=== PATIENT | male | born 1975 | race Two or more races ===

== ENCOUNTER 2020-02-08 08:18 | Outpatient (REF) | payer BC, SELFPAY ==
[2020-02-08 09:47] LABS: Alanine Aminotransferase 17 U/L (0-40); Albumin Level 4.3 g/dL (3.5-5.0); Alkaline Phosphatase 40 U/L (39-117); Anion Gap 10 (12-20); Aspartate Amino Transferase 19 U/L (5-37); Bilirubin Total 1.1 mg/dL (0.0-1.0); Blood Urea Nitrogen 15 mg/dL (9-16); Calcium 9.5 mg/dL (8.4-10.2); Carbon Dioxide 28 mmol/L (22-29); Chloride 104 mmol/L (96-108); Cholesterol 169 mg/dL; Estimated Glomerular Filt Rate > 60; Glucose Fasting 84 mg/dL (60-99); HDL Cholesterol 48 mg/dL; LDL Cholesterol Calculated 91 mg/dl; Potassium 4.3 mmol/l (3.3-5.1); Sodium 138 mmol/L (135-145); Triglycerides 152 mg/dL
== END 2020-02-08 08:19 | disposition home or self-care (01) ==
LOC: HO.LAB 08:18
PROVIDERS: PCP Internal Medicine; Visit Provider Internal Medicine
DX: E78.00 Pure hypercholesterolemia, unspecified (principal)
CPT/HCPCS: 80053; 80061

== ENCOUNTER 2020-08-06 09:16 | Outpatient (REF) | payer BC, SELFPAY ==
[2020-08-06 09:48] LABS: Glucose Urine UA NEG (NEG); Leukocyte Esterase Urine NEG (NEG); Nitrite Urine NEG (NEG); Specific Gravity - Urine >= 1.030 (1.005-1.025); Urine Blood TRACE (NEG); Urine Ketones NEG (NEG); Urine Protein NEG (NEG-TRACE)
[2020-08-06 09:53] LABS: Appearance Urine CLEAR; Color Urine YELLOW
[2020-08-06 10:01] LABS: MANUAL DIFF FLAG NO
[2020-08-06 10:02] LABS: RBC Urine 0-2 /HPF (0); Squamous Epithelial Cell Urine TRACE /LPF; WBC Urine 0 /HPF (0-4)
[2020-08-06 10:04] LABS: Basophils Percent Auto 0.5 % (0-2); Eosinophils Absolute Auto 0.1 X10*3/uL (0.0-0.4); Eosinophils Percent Auto 1.6 % (0-4); Hematocrit 48.5 % (42-52); Imm Gran Abs Auto 0.01 X10*3/uL (0.00-0.03); Imm Gran Pct Auto 0.2 % (0.0-0.4); Lymphocytes Absolute Auto 2.4 X10*3/uL (1.2-4.9); Lymphocytes Percent Auto 38.9 % (20-40); Mean Corpuscular Hemoglobin 28.1 pg (27.0-33.0); Mean Corpuscular Volume 85.1 fL (80-98); Mean Platelet Volume 10.8 fL (9.4-12.4); Monocytes Absolute Auto 0.5 X10*3/uL (0.1-1.2); Monocytes Percent Auto 8.2 % (2-11); Neutrophils Absolute Auto 3.2 X10*3/uL (2.0-8.3); Neutrophils Percent Auto 50.6 % (45-73); Platelet Count 200 X10*3/uL (160-400); Red Cell Distribution Width 13.3 % (11.0-16.0); White Blood Count 6.2 X10*3/uL (4.8-10.8)
[2020-08-06 10:29] LABS: Alanine Aminotransferase 24 U/L (0-40); Albumin Level 4.5 g/dL (3.5-5.0); Alkaline Phosphatase 49 U/L (39-117); Anion Gap 10 (12-20); Aspartate Amino Transferase 21 U/L (5-37); Bilirubin Total 0.7 mg/dL (0.0-1.0); Blood Urea Nitrogen 15 mg/dL (9-16); Calcium 9.7 mg/dL (8.4-10.2); Carbon Dioxide 30 mmol/L (22-29); Chloride 104 mmol/L (96-108); Cholesterol 159 mg/dL; Estimated Glomerular Filt Rate > 60; Glucose Fasting 84 mg/dL (60-99); HDL Cholesterol 48 mg/dL; LDL Cholesterol Calculated 71 mg/dl; Sodium 140 mmol/L (135-145); Total Protein 7.3 g/dL (6.5-8.0); Triglycerides 204 mg/dL
[2020-08-06 10:54] LABS: Prostate Specific Antigen Scr 0.55 ng/mL (<0.05-4.0); TSH reflex Free T4 1.66 uIU/mL (0.32-4.0); Vitamin D 25-OH Total 34.2 ng/mL (>30)
== END 2020-08-06 09:17 | disposition home or self-care (01) ==
LOC: HO.LAB 09:16
PROVIDERS: PCP Internal Medicine; Visit Provider Internal Medicine
DX: Z00.00 Encounter for general adult medical examination without abnormal findings (principal); Z12.5 Encounter for screening for malignant neoplasm of prostate; E78.00 Pure hypercholesterolemia, unspecified; E66.3 Overweight; E55.9 Vitamin D deficiency, unspecified
CPT/HCPCS: 36415; 80053; 80061; 81001; 82306; 84153; 84443; 85025

== ENCOUNTER → 2021-03-28 13:41 | Outpatient (BNVA) | payer BC, SELFPAY | PROVIDERS: PCP Internal Medicine; Referring Provider Internal Medicine; Visit Provider Physician Assistant ==

== ENCOUNTER 2021-07-04 11:32 | Outpatient (REF) | payer BC, SELFPAY ==
[2021-07-04 12:24] LABS: MANUAL DIFF FLAG NO
[2021-07-04 12:37] LABS: Basophils Percent Auto 0.7 % (0-2); Eosinophils Absolute Auto 0.1 X10*3/uL (0.0-0.4); Eosinophils Percent Auto 1.3 % (0-4); Hematocrit 49.1 % (42.0-52.0); Imm Gran Abs Auto 0.01 X10*3/uL (0.00-0.03); Imm Gran Pct Auto 0.2 % (0.0-0.4); Lymphocytes Absolute Auto 1.7 X10*3/uL (1.2-4.9); Lymphocytes Percent Auto 36.6 % (20-40); Mean Corpuscular HGB Conc 32.6 g/dl (31.0-36.0); Mean Corpuscular Volume 85.8 fL (80.0-98.0); Mean Platelet Volume 10.5 fL (9.4-12.4); Monocytes Absolute Auto 0.4 X10*3/uL (0.1-1.2); Monocytes Percent Auto 7.9 % (2-11); Neutrophils Absolute Auto 2.4 x10*3/uL (2.0-8.3); Neutrophils Percent Auto 53.3 % (45-73); Platelet Count 190 X10*3/uL (160-400); Red Blood Count 5.72 X10*6/uL (4.60-5.80); Red Cell Distribution Width 14.3 % (11.0-16.0); White Blood Count 4.6 X10*3/uL (4.8-10.8)
[2021-07-04 12:51] LABS: Prothrombin Time 11.9 SEC (9.9-13.0)
[2021-07-04 12:53] LABS: Partial Thromboplastin Time 31.7 SEC (24.1-38.0)
[2021-07-04 13:07] LABS: Alanine Aminotransferase 34 U/L (0-40); Albumin Level 4.5 g/dL (3.5-5.0); Alkaline Phosphatase 47 U/L (39-117); Anion Gap 10 (12-20); Aspartate Amino Transferase 25 U/L (5-37); Bilirubin Total 1.3 mg/dL (0.0-1.0); Blood Urea Nitrogen 10 mg/dL (9-16); Carbon Dioxide 29 mmol/L (22-29); Chloride 104 mmol/L (96-108); Cholesterol 213 mg/dL; Estimated Glomerular Filt Rate > 60; Glucose Random 91 mg/dL (60-115); HDL Cholesterol 50 mg/dL; LDL Cholesterol Calculated 141 mg/dl; Potassium 4.8 mmol/L (3.3-5.1); Sodium 138 mmol/L (135-145); Total Protein 7.6 g/dL (6.5-8.0); Triglycerides 112 mg/dL
== END 2021-07-04 11:33 | disposition home or self-care (01) ==
LOC: HO.LAB 11:32
PROVIDERS: PCP Internal Medicine; Visit Provider Internal Medicine
DX: Z01.818 Encounter for other preprocedural examination (principal); E78.00 Pure hypercholesterolemia, unspecified
CPT/HCPCS: 36415; 80053; 80061; 85025; 85610; 85730

== ENCOUNTER 2021-07-26 11:19 | Day surgery (SDC) | payer BC, SELFPAY ==
--- NOTE | 2021-07-25 13:18 | P.CONAN_ITS ---
Documented by User: Tammy Peña NP 07/25/21 13:21 HPI - Anesthesia Eval Consult details Narrative: 46yo M for Upper Endoscopy and Colonoscopy [facility] Active Problems Active Problems: All Active Problems (Updated 07/22/21 @ 15:23 by Jennifer Ramsay RN) Annual physical exam (Acute) Colon cancer screening (Acute) Rupture of biceps tendon (Acute) Preoperative examination (Acute) GERD without esophagitis (Acute) Overweight (BMI 25.0-29.9) (Acute) Vitamin D deficiency (Acute) Pure hypercholesterolemia (Acute) Past Medical History Medical History (Updated 07/22/21 @ 15:23 by Jennifer Ramsay RN) GERD without esophagitis Overweight (BMI 25.0-29.9) Pure hypercholesterolemia Vitamin D deficiency Family History Family History Father No problems noted. Mother No problems noted. Surgical History Surgical History (Updated 07/22/21 @ 15:23 by Jennifer Ramsay RN) History of elbow surgery History of esophagogastroduodenoscopy (EGD) History of surgery Hx of colonoscopy Social History Social History Household Members Other:: Housing: House Alcohol intake: current Alcohol intake frequency: does not drink Patient Tobacco Use Status: Never used Tobacco Second Hand Smoke Exposure: No Use of substances other than those prescribed or required for medical reasons: No Are you DNR?: No Advance Directives: No Advance Directives Information Provided: Yes Advance Directives on File: No service: No Current occupational status: employed 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 Cognitive needs: No Hearing needs: No Vision needs: No Meds Allergies Allergy/AdvReac Type Severity Reaction Status Date / Time No Known Allergies Allergy Verified 07/22/21 15:24 Home Medications Medication Instructions Recorded Confirmed Last Taken Type cholecalciferol (vitamin D3) 25 25 mcg PO DAILY 03/06/20 07/22/21 Unknown History mcg (1,000 unit) capsule Exam Exam Date and Time: July 25, 2021 1318 Pertinent Lab Results Pertinent Lab Results: Laboratory Tests 07/04/21 07/04/21 12:22 12:22 WBC 4.6 L Hgb 16.0 Hct 49.1 Plt Count 190 Sodium 138 Potassium 4.8 Chloride 104 Carbon Dioxide 29 BUN 10 Creatinine 0.97 Assessment and Plan Assessment Anesthesia Assessment: Chart Reviewed Documented by User: Nasima Prater MD 07/26/21 12:42 [facility] Past Medical History Medical History (Updated 07/22/21 @ 15:23 by Jennifer Ramsay, RN) GERD without esophagitis Overweight (BMI 25.0-29.9) Pure hypercholesterolemia Vitamin D deficiency Family History Family History Father No problems noted. Mother No problems noted. Family history of problems with anesthesia: No Surgical History Surgical History (Updated 07/22/21 @ 15:23 by Jennifer Ramsay RN) History of elbow surgery History of esophagogastroduodenoscopy (EGD) History of surgery Hx of colonoscopy History of Problems with Anesthesia: No Social History Social History Household Members Other:: Housing: House Alcohol intake: current Alcohol intake frequency: does not drink Patient Tobacco Use Status: Never used Tobacco Second Hand Smoke Exposure: No Use of substances other than those prescribed or required for medical reasons: No Are you DNR?: No Advance Directives: No Advance Directives Information Provided: Yes Advance Directives on File: No service: No Current occupational status: employed 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 Cognitive needs: No Hearing needs: No Vision needs: No Meds Allergies Allergy/AdvReac Type Severity Reaction Status Date / Time No Known Allergies Allergy Verified 07/22/21 15:24 Home Medications Medication Instructions Recorded Confirmed Last Taken Type cholecalciferol (vitamin D3) 25 25 mcg PO DAILY 03/06/20 07/22/21 Unknown History mcg (1,000 unit) capsule Exam Airway Mallampati Class: II TM Dist: >3cm Neck ROM: Full Heart: rrr Lungs: cta Assessment and Plan Assessment Anesthesia Assessment: Anesthesia Plan Discussed and Chart Reviewed Final Anesthetic Review Family History of Problems with Anesthesia: No History of Problems with Anesthesia: No NPO: Yes ASA Class: II Final Preanesthetic Review: No Changes in Pt Med Stat, Meds/Allgs Chart Reviewed and Consent Obtained/Reviewed Patient Risk: Intermediate Procedure Risk: Intermediate Anesthetic Plan Anesthetic Plan: MAC: Disposition: Standard PACU
[2021-07-26 11:39] VITALS: BMI 27.9
[2021-07-26 11:44] VITALS: BP 116/68; PULSE 82; RESP 16; TEMP 36.6; O2SAT 98
--- NOTE | 2021-07-26 12:39 | MHC.SHP ---
Pre-Procedural Eval Section A Date of Service: 07/26/21 The patient is an INPATIENT: No The History & Physical has been completed within 30 days and I have reviewed it.: No Section B Chief Complaint: screening,reflux Details of Present Illness: Colon cancer screening, GERD Relevant Family History (Specify if Yes): No Relevant Social History: None Present Medications: see Short Stay Collaborative assessment Medical History: Significant History (GERD without esophagitis Overweight (BMI 25.0-29.9) Pure hypercholesterolemia Vitamin D deficiency) History of Previous Operations: Relevant previous surgery/procedure and date(s) (History of esophagogastroduodenoscopy (EGD) History of surgery Hx of colonoscopy) Allergies: Allergies Allergy/AdvReac Type Severity Reaction Status Date / Time No Known Allergies Allergy Verified 07/22/21 15:24 Review of Systems Sugical H&P ROS: Negative: Constitution, Cardiovascular, Respiratory and Gastrointestinal Exam Surgical H&P Exam: Normal: Heart, Normal: Lungs and Normal: Extremities Plan Diagnosis/Plan: Unchanged I have reviewed the history and physical and performed a pertinent physical examination on my patient. No changes have occurred unless specified.
[2021-07-26] MEDS: Lactated Ringers 1,000 ML 100 ML IVCONT (12:41)
--- NOTE | 2021-07-26 13:04 | PM.OP ---
Brief Operative Note Date of Service: 07/26/21 Pre-op diagnosis: Colon cancer screening, GERD, abdominal bloating Post-op diagnosis: other (GERD, gastritis, gastric polyp, colon polyps, diverticulosis, hemorrhoids) Procedure: FLEXIBLE TRANSORAL UPPER GASTROINTESTINAL ENDOSCOPY WITH BIOPSIES AND COLONOSCOPY TILL CECUM WITH BIOPSIES UPPER ENDOSCOPY Consent: Indications for the procedure and potential complications of bleeding, perforation, reaction to medications and missed diagnosis were discussed with the patient and informed consent was obtained. Instrument: Olympus GIF H 190 mid size upper endoscope Monitoring: Vital signs and clinical assessment, continuous EKG monitoring, Pulse oximetry, Carbon Dioxide monitoring and blood pressure monitoring were done throughout the procedure. Procedure: The patient was placed in the left lateral decubitis position and pre-procedure medications were administered and a bite block was placed. The endoscope was inserted into the mouth and advanced under direct vision to the third part of duodenum. A careful inspection was made as the upper endoscope was withdrawn including a retroflexed examination of the proximal stomach; Findings and interventions are described below. Findings: Larynx: Normal Esophagus: GE junction at 40 cms. No esophagitis or Kurtz's. Stomach: Mild gastric erythema. Biopsies were obtained. A 4-5 mm benign appearing polyp in the fundus (biopsied) and Grade 2 flap valve on retroflexed examination of the cardia. Duodenum: Normal bulb and descending duodenum. Biopsies were obtained from 3rd part of the duodenum to check for celiac sprue. Intervention: Biopsies as noted above COLONOSCOPY PROCEDURE NOTE Consent: Indications for the procedure and potential complications of bleeding, perforation, reaction to medications and missed diagnosis were discussed with the patient and informed consent was obtained. Instrument: Olympus PCF H 190 L variable stiffness pediatric colonoscope Monitoring: Vital signs and clinical assessment, intermittent blood pressure monitoring, continuous EKG monitoring, Pulse oximetry and Carbon Dioxide monitoring were done throughout the procedure. Colon withdrawl time was 14 minutes. Procedure: The patient was placed in the left lateral decubitis position and pre-procedure medications were administered. After a digital rectal examination of the ano-rectum, the video colonoscope was inserted into the rectum and advanced through the colon to the cecum. The colonoscope was slowly withdrawn in a retrograde panoramic fashion and the colon mucosa was carefully examined including a retroflexed view of the rectum. Findings and interventions are described below. Procedure Difficulty: : Without difficulty Findings: Terminal Ileum: Not evaluated Cecum: Partially evaluated due to sub optimal prep in the right colon Ascending Colon: Normal Transverse Colon: Normal Descending Colon: Normal Sigmoid Colon: Moderate diverticulosis Rectum: Two 5-6 mm diminutive appearing polyps removed with a cold biopsy Ano-rectum: Moderate internal hemorrhoids Colon preparation: Fair in the right colon and small area in the sigmoid colon due to undigested food - despite copious irrigation Good in the transverse and left colon (approx 60 to 65% of the colon mucosa was visualized) Impression and Post Procedure Diagnosis: Endoscopy Findings: STOMACH: Gastritis and gastric polyp DUODENUM: Normal - Biopsies were obtained from 3rd part of the duodenum to check for celiac sprue. Colonoscopy Findings: Two small diminutive appearing polyps removed Moderate diverticulosis seen in the sigmoid colon Moderate hemorrhoids on retroflexed exam. Plan: Await pathology results Patient has an appointment on 08/07/21 in the GI Clinic with KEVIN Gunderson. Repeat Colonoscopy interval based on path results - in 3 years due to fair prep in the right colon. Above findings were reviewed with the patient and GERD, Gastric polyps, colon polyps and diverticulosis handouts were given in the discharge area Surgeon: Katie Reese MD Anesthesia: MAC (Dr Vasquez) Was an Estimator Paperboard Boxes used for this Procedure?: Yes Estimator Paperboard Boxes: Shannan Becker Estimated blood loss (mL): 0 Pathology: other (a. Small bowel bx's r/o celiacs b. Gastric antrum bx r/o h. pylori c. Gastric polyp d. Rectal polyp) Condition: stable Disposition: PACU
[2021-07-26 13:32] VITALS: BP 101/64; PULSE 90; RESP 16; TEMP 36.2; O2SAT 93
[2021-07-26 13:47] VITALS: BP 109/69; PULSE 82; RESP 16; O2SAT 95
[2021-07-26 14:02] VITALS: BP 115/72; PULSE 63; RESP 22; TEMP 36.6; O2SAT 96
--- NOTE | 2021-07-28 17:02 | P.OP_ITS ---
Operative Note Operative Note Date of Service: 07/26/21 Narrative: Pre-op diagnosis: Colon cancer screening, GERD, abdominal bloating Post-op diagnosis:?other (GERD, gastritis, gastric polyp, colon polyps, diverticulosis, hemorrhoids) Procedure: FLEXIBLE TRANSORAL UPPER GASTROINTESTINAL ENDOSCOPY WITH BIOPSIES AND COLONOSCOPY TILL CECUM WITH BIOPSIES UPPER ENDOSCOPY Consent:?Indications for the procedure and potential complications of bleeding, perforation, reaction to medications and missed diagnosis were discussed with the patient and informed consent was obtained. Instrument:?Olympus GIF H 190 mid size upper endoscope Monitoring: Vital signs and clinical assessment, continuous EKG monitoring, Pulse oximetry, Carbon Dioxide monitoring and blood pressure monitoring were done throughout the procedure. Procedure:?The patient was placed in the left lateral decubitis position and pre-procedure medications were administered and a bite block was placed. The endoscope was inserted into the mouth and advanced under direct vision to the third part of duodenum. A careful inspection was made as the upper endoscope was withdrawn including a retroflexed examination of the proximal stomach; Findings and interventions are described below. Findings: Larynx:? Normal Esophagus:?GE junction at 40 cms. No esophagitis or Kurtz's. Stomach:?Mild gastric erythema. Biopsies were obtained. A 4-5 mm benign appearing polyp in the fundus (biopsied) and Grade 2 flap valve on retroflexed examination of the cardia. Duodenum:?Normal bulb and descending duodenum.? Biopsies were obtained from 3rd part of the duodenum to check for celiac sprue. Intervention:?Biopsies as noted above COLONOSCOPY PROCEDURE NOTE Consent:?Indications for the procedure and potential complications of bleeding, perforation, reaction to medications and missed diagnosis were discussed with the patient and informed consent was obtained. Instrument:?Olympus PCF H 190 L variable stiffness pediatric colonoscope Monitoring:?Vital signs and clinical assessment, intermittent blood pressure monitoring, continuous EKG monitoring, Pulse oximetry and Carbon Dioxide monitoring were done throughout the procedure. Colon withdrawl time was 14 minutes. Procedure:?The patient was placed in the left lateral decubitis position and pre-procedure medications were administered. After a digital rectal examination of the ano-rectum, the video colonoscope was inserted into the rectum and advanced through the colon to the cecum. The colonoscope was slowly withdrawn in a retrograde panoramic fashion and the colon mucosa was carefully examined including a retroflexed view of the rectum. Findings and interventions are described below. Procedure Difficulty:?: Without difficulty Findings: Terminal Ileum: Not evaluated Cecum:? Partially evaluated due to sub optimal prep in the right colon Ascending Colon:??Normal Transverse Colon:??Normal Descending Colon:? Normal Sigmoid Colon:??Moderate diverticulosis Rectum:??Two 5-6 mm diminutive appearing polyps removed with a cold biopsy Ano-rectum:??Moderate internal hemorrhoids Colon preparation:? Fair in the right colon and small area in the sigmoid colon due to undigested food - despite copious irrigation Good in the transverse and left colon (approx 60 to 65% of the colon mucosa was visualized) Impression and Post Procedure Diagnosis: Endoscopy Findings: STOMACH:? Gastritis and gastric polyp DUODENUM: Normal - Biopsies were obtained from 3rd part of the duodenum to check for celiac sprue. Colonoscopy Findings: Two small diminutive appearing polyps removed Moderate diverticulosis seen in the sigmoid colon Moderate hemorrhoids on retroflexed exam. Plan: Await pathology results Patient has an appointment on 08/07/21 in the GI Clinic with KEVIN Gunderson. Repeat Colonoscopy interval based on path results - in 3 years due to fair prep in the right colon. Above findings were reviewed with the patient and GERD, Gastric polyps, colon polyps and diverticulosis handouts were given in the discharge area Surgeon: Katie Reese MD Anesthesia:?MAC (Dr Vasquez) Was an Polishing Pad Mounter used for this Procedure?:?Yes Polishing Pad Mounter:?Shannan Becker Estimated blood loss (mL):?0 Pathology:?other (a. Small bowel bx's r/o celiacs? b. Gastric antrum bx r/o h. pylori? c. Gastric polyp? d. Rectal polyp) Condition:?stable Disposition:?PACU
== END 2021-07-26 14:35 | disposition home or self-care (01) ==
PROVIDERS: PCP Internal Medicine; Visit Provider Internal Medicine Gastroenterology
PROC: (CPT 45380; principal; 2021-07-26 12:40)
DX: Z12.11 Encounter for screening for malignant neoplasm of colon (principal); K62.1 Rectal polyp; K57.30 Diverticulosis of large intestine without perforation or abscess without bleeding; K64.8 Other hemorrhoids; K21.9 Gastro-esophageal reflux disease without esophagitis; K29.70 Gastritis, unspecified, without bleeding; K31.7 Polyp of stomach and duodenum; E66.3 Overweight; Z68.27 Body mass index [BMI] 27.0-27.9, adult; E78.00 Pure hypercholesterolemia, unspecified; E55.9 Vitamin D deficiency, unspecified; Z79.899 Other long term (current) drug therapy
CPT/HCPCS: 45380; 43239; 88305; 88342

== ENCOUNTER 2021-12-14 07:28 | Outpatient (REF) | payer BC, SELFPAY ==
[2021-12-14 07:47] LABS: MANUAL DIFF FLAG NO
[2021-12-14 08:08] LABS: Basophils Absolute Auto 0.1 X10*3/uL (0.0-0.2); Eosinophils Absolute Auto 0.1 X10*3/uL (0.0-0.4); Eosinophils Percent Auto 1.9 % (0-4); Hematocrit 47.7 % (42.0-52.0); Hemoglobin 15.5 g/dl (14.0-18.0); Imm Gran Abs Auto 0.02 X10*3/uL (0.00-0.03); Imm Gran Pct Auto 0.3 % (0.0-0.4); Lymphocytes Absolute Auto 2.3 X10*3/uL (1.2-4.9); Lymphocytes Percent Auto 38.5 % (20-40); Mean Corpuscular HGB Conc 32.5 g/dl (31.0-36.0); Mean Corpuscular Hemoglobin 27.9 pg (27.0-33.0); Mean Corpuscular Volume 85.9 fL (80.0-98.0); Mean Platelet Volume 10.6 fL (9.4-12.4); Monocytes Absolute Auto 0.5 X10*3/uL (0.1-1.2); Monocytes Percent Auto 7.8 % (2-11); Neutrophils Percent Auto 50.5 % (45-73); Platelet Count 203 X10*3/uL (160-400); Red Blood Count 5.55 X10*6/uL (4.60-5.80); Red Cell Distribution Width 13.6 % (11.0-16.0); White Blood Count 5.9 X10*3/uL (4.8-10.8)
[2021-12-14 08:38] LABS: Alanine Aminotransferase 21 U/L (0-40); Albumin Level 4.5 g/dL (3.5-5.0); Alkaline Phosphatase 54 U/L (39-117); Anion Gap 13 (12-20); Aspartate Amino Transferase 26 U/L (5-37); Bilirubin Total 0.9 mg/dL (0.0-1.0); Blood Urea Nitrogen 10 mg/dL (9-16); Calcium 9.8 mg/dL (8.4-10.2); Carbon Dioxide 28 mmol/L (22-29); Chloride 103 mmol/L (96-108); Cholesterol 164 mg/dL; Estimated Glomerular Filt Rate > 60; Glucose Fasting 91 mg/dL (60-99); HDL Cholesterol 43 mg/dL; LDL Cholesterol Calculated 86 mg/dl; Sodium 140 mmol/L (135-145); Total Protein 7.5 g/dL (6.5-8.0); Triglycerides 177 mg/dL
[2021-12-14 09:02] LABS: Prostate Specific Antigen 0.69 ng/mL (<0.05-4.0); TSH reflex Free T4 1.76 uIU/mL (0.32-4.0); Vitamin D 25-OH Total 38.1 ng/mL (>30)
[2021-12-14 09:03] LABS: Appearance Urine Clear; Color Urine Dark Yellow; Glucose Urine UA Negative (Negative); Leukocyte Esterase Urine Negative (Negative); Nitrite Urine Negative (Negative); PH 5.5 (5.0-9.0); Specific Gravity - Urine 1.025 (1.005-1.025); Urine Blood Negative (Negative); Urine Ketones Trace mg/dL (Negative); Urine Protein Negative (Neg-Trace)
== END 2021-12-14 07:29 | disposition home or self-care (01) ==
LOC: HO.LAB 07:28
PROVIDERS: PCP Internal Medicine; Visit Provider Internal Medicine
DX: Z00.00 Encounter for general adult medical examination without abnormal findings (principal); I10 Essential (primary) hypertension; N40.0 Benign prostatic hyperplasia without lower urinary tract symptoms; E78.00 Pure hypercholesterolemia, unspecified; E55.9 Vitamin D deficiency, unspecified; Z12.5 Encounter for screening for malignant neoplasm of prostate
CPT/HCPCS: 36415; 80053; 80061; 81003; 82306; 84153; 84443; 85025

== ENCOUNTER 2022-07-11 08:23 | Outpatient (REF) | payer BC, SELFPAY ==
[2022-07-11 08:32] LABS: MANUAL DIFF FLAG NO
[2022-07-11 08:46] LABS: Basophils Percent Auto 0.6 % (0-2); Eosinophils Absolute Auto 0.1 X10*3/uL (0.0-0.4); Eosinophils Percent Auto 2.1 % (0-4); Hematocrit 47.6 % (42.0-52.0); Hemoglobin 15.7 g/dl (14.0-18.0); Imm Gran Abs Auto 0.01 X10*3/uL (0.00-0.03); Imm Gran Pct Auto 0.2 % (0.0-0.4); Lymphocytes Absolute Auto 2.2 X10*3/uL (1.2-4.9); Lymphocytes Percent Auto 41.7 % (20-40); Mean Platelet Volume 10.4 fL (9.4-12.4); Monocytes Absolute Auto 0.4 X10*3/uL (0.1-1.2); Monocytes Percent Auto 8.1 % (2-11); Neutrophils Absolute Auto 2.5 x10*3/uL (2.0-8.3); Neutrophils Percent Auto 47.3 % (45-73); Platelet Count 196 X10*3/uL (160-400); Red Cell Distribution Width 13.5 % (11.0-16.0); White Blood Count 5.2 X10*3/uL (4.8-10.8)
[2022-07-11 08:55] LABS: Appearance Urine Clear; Color Urine Yellow; Glucose Urine UA Negative (Negative); Leukocyte Esterase Urine Negative (Negative); Nitrite Urine Negative (Negative); PH 5.5 (5.0-9.0); Urine Blood Negative (Negative); Urine Ketones Negative (Negative); Urine Protein Negative (Neg-Trace)
[2022-07-11 09:15] LABS: Alanine Aminotransferase 26 U/L (0-40); Albumin Level 4.3 g/dL (3.5-5.0); Alkaline Phosphatase 46 U/L (39-117); Anion Gap 12 (12-20); Aspartate Amino Transferase 24 U/L (5-37); Bilirubin Total 1.4 mg/dL (0.0-1.0); Blood Urea Nitrogen 15 mg/dL (9-16); Calcium 9.6 mg/dL (8.4-10.2); Carbon Dioxide 26 mmol/L (22-29); Chloride 107 mmol/L (96-108); Cholesterol 178 mg/dL; Estimated Glomerular Filt Rate > 60; Glucose Fasting 84 mg/dL (60-99); HDL Cholesterol 43 mg/dL; LDL Cholesterol Calculated 110 mg/dl; Potassium 4.1 mmol/L (3.3-5.1); Sodium 141 mmol/L (135-145); Triglycerides 125 mg/dL
[2022-07-11 09:32] LABS: Vitamin D 25-OH Total 40.7 ng/mL (>30)
== END 2022-07-11 08:24 | disposition home or self-care (01) ==
LOC: HO.LAB 08:23
PROVIDERS: PCP Internal Medicine; Visit Provider Internal Medicine
DX: R30.0 Dysuria (principal); E55.9 Vitamin D deficiency, unspecified; I10 Essential (primary) hypertension; E78.00 Pure hypercholesterolemia, unspecified
CPT/HCPCS: 36415; 80053; 80061; 81003; 82306; 85025

== ENCOUNTER 2022-11-15 08:42 | Outpatient (REF) | payer BC, SELFPAY ==
[2022-11-15 09:13] LABS: MANUAL DIFF FLAG NO
[2022-11-15 09:44] LABS: Basophils Absolute Auto 0.1 X10*3/uL (0.0-0.2); Basophils Percent Auto 1.1 % (0-2); Eosinophils Absolute Auto 0.1 X10*3/uL (0.0-0.4); Eosinophils Percent Auto 1.4 % (0-4); Hematocrit 47.3 % (42.0-52.0); Hemoglobin 15.5 g/dl (14.0-18.0); Imm Gran Abs Auto 0.02 X10*3/uL (0.00-0.03); Imm Gran Pct Auto 0.4 % (0.0-0.4); Lymphocytes Absolute Auto 1.9 X10*3/uL (1.2-4.9); Lymphocytes Percent Auto 33.6 % (20-40); Mean Corpuscular HGB Conc 32.8 g/dl (31.0-36.0); Mean Corpuscular Hemoglobin 28.5 pg (27.0-33.0); Mean Corpuscular Volume 87.1 fL (80.0-98.0); Mean Platelet Volume 10.5 fL (9.4-12.4); Monocytes Absolute Auto 0.5 X10*3/uL (0.1-1.2); Monocytes Percent Auto 8.3 % (2-11); Neutrophils Absolute Auto 3.1 x10*3/uL (2.0-8.3); Neutrophils Percent Auto 55.2 % (45-73); Platelet Count 197 X10*3/uL (160-400); Red Blood Count 5.43 X10*6/uL (4.60-5.80); Red Cell Distribution Width 13.7 % (11.0-16.0); White Blood Count 5.5 X10*3/uL (4.8-10.8)
[2022-11-15 10:06] LABS: Appearance Urine Clear; Color Urine Yellow; Glucose Urine UA Negative (Negative); Leukocyte Esterase Urine Negative (Negative); Nitrite Urine Negative (Negative); PH 5.5 (5.0-9.0); Urine Blood Negative (Negative); Urine Ketones Negative (Negative); Urine Protein Negative (Neg-Trace)
[2022-11-15 10:34] LABS: Alanine Aminotransferase 25 U/L (0-40); Albumin Level 4.4 g/dL (3.5-5.0); Alkaline Phosphatase 49 U/L (39-117); Aspartate Amino Transferase 25 U/L (5-37); Blood Urea Nitrogen 12 mg/dL (9-16); Calcium 9.7 mg/dL (8.4-10.2); Chloride 106 mmol/L (96-108); Cholesterol 171 mg/dL (<200); Estimated Glomerular Filt Rate > 60; Glucose Fasting 92 mg/dL (60-99); HDL Cholesterol 47 mg/dL (>40); LDL Cholesterol Calculated 102 mg/dL (<100); Potassium 4.1 mmol/L (3.3-5.1); Sodium 140 mmol/L (135-145); Total Protein 7.5 g/dL (6.5-8.0); Triglycerides 114 mg/dL (<150)
[2022-11-15 10:41] LABS: Anion Gap 13 (12-20)
[2022-11-15 10:47] LABS: TSH reflex Free T4 0.83 uIU/mL (0.32-4.0)
[2022-11-15 10:55] LABS: Carbon Dioxide 26 mmol/L (22-29)
== END 2022-11-15 08:43 | disposition home or self-care (01) ==
LOC: HO.LAB 08:42
PROVIDERS: PCP Internal Medicine; Visit Provider Internal Medicine
DX: R30.0 Dysuria (principal); I10 Essential (primary) hypertension; E78.00 Pure hypercholesterolemia, unspecified
CPT/HCPCS: 36415; 80053; 80061; 81003; 84443; 85025

== ENCOUNTER 2022-11-21 16:48 | Outpatient (AMB) | payer BC, SELFPAY ==
--- NOTE | 2022-11-21 16:50 | MHC.PC.OV ---
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 Required: No Accompanied by: Self / Same As Patient Allergies No Known Allergies Allergy (Verified 11/21/22 17:02) Medication List - Last Reconciled 11/21/22 by Patrick Brown MD atorvastatin 10 mg PO BEDTIME 90 days cholecalciferol (vitamin D3) 25 mcg PO DAILY omeprazole magnesium 20 mg PO DAILY 90 days Tobacco use date assessed: 11/21/22 Dental Screening Dental Screen Date: 11/21/22 Did you have a dental visit in the last 12 months?: Yes Did you have a dental problem in the last 6 months where you did not have access to dental care?: No Was dental information given to patient?: Patient has dentist HPI hyperlipidemia, GERD HPI Details Patient comes in today for his follow up visit States that he feels okay He denies any headaches or dizziness Denies any chest pains, no SOB No nausea/vomiting, no abdominal pain No change in bowel habits noted Had his follow uo labs done last week - to discuss his results [facility] Medical History GERD without esophagitis Overweight (BMI 25.0-29.9) Vitamin D deficiency Pure hypercholesterolemia Surgical History History of elbow surgery History of esophagogastroduodenoscopy (EGD) Hx of colonoscopy History of surgery Family History Father No problems noted. Mother No problems noted. 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 1. Little interest or pleasure in doing things: not at all 2. Feeling down, depressed, or hopeless: not at all 3. Trouble falling or staying asleep, or sleeping too much: not at all 4. Feeling tired or having little energy: not at all 5. Poor appetite or overeating: not at all 6. Feeling bad about yourself - or that you are a failure or have let yourself or your family down: not at all 7. Trouble concentrating on things, such as reading the newspaper or watching television: not at all 8. Moving or speaking so slowly that other people could have noticed. Or the opposite - being so fidgety or restless that you have been moving around a lot more than usual: not at all 9. Thoughts that you would be better off or of hurting yourself in some way: not at all Total score: 0 Depression Screening Interpretation: Negative Depression Screening Done: Yes 30717 - PHQ-9 Billing: Yes Source: Developed by Drs. Pankaj Suarez, Geeta Head, Benedicto Borja and colleagues, with an educational kaz from [employer]. Thrive Questionnaire Date Thrive assessed: 11/21/22 I am a: Patient What is your living situation today?: I have a steady place to live Within the past 12 months, did the food you bought not last and you didn't have the money to get more?: Never true Within the past 12 months, did you worry whether your food would run out before you got money to buy more?: Never true Do you have trouble paying for medicines?: No Do you have trouble getting transportation to medical appointments?: No Do you have trouble paying your heating and electricity bill?: No Do you have trouble taking care of your child, family member or friend?: No Do you have trouble with day-to-day activities such as bathing, preparing meals, shopping, managing finances, etc.?: No Are you currently unemployed and looking for a job?: No Are you interested in more education?: No Please select the resources that you would like help with: None Currently or been in a relationship where the following occur: no concerns reported AUDIT C Alcohol Use Questionnaire (AUDIT-C) 1. How often do you have a drink containing alcohol?: 2-3 times a week 2. How many drinks containing alcohol do you have on a typical day when you are drinking?: 1 or 2 3. How often do you have six or more drinks on one occasion?: Never Total Score: 3 Score Reviewed/Action Taken: Yes OSWALDO-7 AMB Questionnaire OSWALDO-7 Date OSWALDO - 7 assessed: 11/21/22 Feeling nervous, anxious, or on edge: 0 = Not at all Not being able to stop or control worryin = Not at all Worrying too much about different things: 0 = Not at all Trouble relaxin = Not at all Being so restless that it is hard to sit still: 0 = Not at all Becoming easily annoyed or irritable: 0 = Not at all Feeling afraid as if something awful might happen: 0 = Not at all Total OSWALDO-7 score (0-4 normal; 5-9 mild; 10-14 moderate; 15-21 severe): 0 Source: Developed by Drs. Pankaj Suarez, Geeta Head, Benedicto Borja and colleagues, with an educational kaz from [employer]. Review of Systems Const Denies chills, Denies fatigue, Denies fever(s) and Denies headache(s) ENT Denies dysphagia, Denies dizziness, Denies otalgia, Denies headache(s), Denies neck pain, Denies odynophagia and Denies sore throat Card Denies chest pain, Denies palpitations and Denies dyspnea Resp Denies cough and Denies dyspnea GI Denies abdominal pain, Denies constipation, Denies dysphagia, Denies diarrhea, Denies nausea, Denies odynophagia and Denies vomiting Denies dysuria, Denies nocturia and Denies urinary frequency Musc Denies neck pain Neuro Denies dizziness and Denies headache(s) Endo Denies fatigue and Denies palpitations Physical exam (Primary Care) Vital Signs: Last Vital Signs Pulse 64 11/21/22 16:51 BP 104/70 11/21/22 16:51 Pulse Ox 95 11/21/22 16:51 Oxygen Delivery Method Room Air 11/21/22 16:51 BMI result Body Mass Index 29.6 Tobacco/Smoking Status: Tobacco use Status Tobacco use date assessed 11/21/22 11/21/22 16:53 Patient Tobacco Use Status Never used Tobacco 11/21/22 16:53 PHQ-9: PHQ-9 Score PHQ-9: Total score 0 11/21/22 17:06 Depression Screening Interpretation: Negative Thrive Assessment: Date of Thrive Assessment Date Thrive assessed 11/21/22 11/21/22 16:53 Currently or been in a relationship where the following occur: no concerns reported Const General: no acute distress and alert HENMT Ears: TM's normal bilaterally and EAC's normal Throat: Yes posterior oropharynx normal and Yes tonsils normal (no TP congestion) Neck Neck: Yes no lymphadenopathy and Yes supple Resp Auscultation: clear to auscultation bilaterally, no rales and no wheezes Cardio Rate: regular rate Rhythm: regular rhythm Heart sounds: no murmurs GI Palpation (GI): Soft to palpation and nontender Auscultation: normal bowel sounds General: Yes no CVA tenderness Back/Spine/Pelvis Back: no CVA tenderness Extrem General: Yes no clubbing, cyanosis or edema Results Reviewed Results Reviewed: Laboratory Tests 11/15/22 11/15/22 11/15/22 09:06 09:11 09:11 WBC 5.5 Hgb 15.5 Hct 47.3 Plt Count 197 Sodium 140 Potassium 4.1 Creatinine 0.92 Estimated GFR > 60 Fasting Glucose 92 Calcium 9.7 AST 25 ALT 25 Triglycerides 114 Cholesterol 171 LDL Cholesterol, Calc 102 H HDL Cholesterol 47 TSH 0.83 Ur Specific Nice 1.020 Urine Protein Negative Urine Glucose (UA) Negative Urine Blood Negative Assessment and Plan Assessment & Plan (1) Pure hypercholesterolemia: Code(s): E78.00 - Pure hypercholesterolemia, unspecified Plan: Results of his labs done last week reviewed and discussed with patient - advised that his lipids have improved slightly from previous Reinforced low cholesterol diet Continue Atorvastatin 10 mg QD for now Will recheck his labs and fasting lipids in 4 months for follow up (2) GERD without esophagitis: Comment: ED-08/06- GERD- EKG no ischemia, U/S no stones- ppi- avoid culprits Get- EGD Code(s): K21.9 - Gastro-esophageal reflux disease without esophagitis Plan: Dietary restrictions reinforced Continue Omeprazole 20 mg QD (3) Vitamin D deficiency: Code(s): E55.9 - Vitamin D deficiency, unspecified Plan: Continue Vitamin D3 1000 units QD (4) Rupture of biceps tendon: Code(s): S46.219A - Strain of muscle, fascia and tendon of other parts of biceps, unspecified arm, initial encounter Qualifiers: Encounter type: sequela Laterality: right Qualified Code(s): S46.211S - Strain of muscle, fascia and tendon of other parts of biceps, right arm, sequela Plan: Resolved - S/P surgical repair of his distal biceps tendon and reconstruction with tendon allograft on the right elbow by Dr. Moe on 07/09/21, with significant improvement of his right arm strength and mobility He has also completed physical therapy and now just does some arm exercises on his own on a regular basis (5) Overweight (BMI 25.0-29.9): Code(s): E66.3 - Overweight Plan: Reinforced diet/exercise as tolerated/lose weight - has been able to lose some weight again since his last visit Plan Follow up in 4 months Orders: Orders Lipid Panel 4 Months E78.00 - Pure hypercholesterolemia, unspecified Complete Blood Count Auto Diff 4 Months I10 - Essential (primary) hypertension Comprehensive [employer]. Panel Fast 4 Months E78.00 - Pure hypercholesterolemia, unspecified Coding Level of Care Code Est Pt Level 3 (57734) Diagnoses Pure hypercholesterolemia E78.00 GERD without esophagitis K21.9 Vitamin D deficiency E55.9 Rupture of right biceps tendon, sequela S46.211S Encounter type: sequela Laterality: right Overweight (BMI 25.0-29.9) E66.3
[2022-11-21 16:51] VITALS: BP 104/70; PULSE 64; O2SAT 95; BMI 29.6
== END 2022-11-21 17:09 | disposition home or self-care (01) ==
PROVIDERS: PCP Internal Medicine; Visit Provider Internal Medicine
DX: E78.00 Pure hypercholesterolemia, unspecified (principal); K21.9 Gastro-esophageal reflux disease without esophagitis; E55.9 Vitamin D deficiency, unspecified; S46.211S Strain of muscle, fascia and tendon of other parts of biceps, right arm, sequela; E66.3 Overweight
CPT/HCPCS: 99213

== ENCOUNTER 2023-06-13 07:39 | Outpatient (REF) | payer BC, SELFPAY ==
[2023-06-13 07:59] LABS: MANUAL DIFF FLAG NO
[2023-06-13 08:31] LABS: Basophils Absolute Auto 0.1 X10*3/uL (0.0-0.2); Basophils Percent Auto 0.9 % (0-2); Eosinophils Absolute Auto 0.1 X10*3/uL (0.0-0.4); Eosinophils Percent Auto 1.7 % (0-4); Hematocrit 48.6 % (42.0-52.0); Hemoglobin 16.4 g/dl (14.0-18.0); Imm Gran Abs Auto 0.02 X10*3/uL (0.00-0.03); Imm Gran Pct Auto 0.3 % (0.0-0.4); Lymphocytes Absolute Auto 1.8 X10*3/uL (1.2-4.9); Lymphocytes Percent Auto 31.8 % (20-40); Mean Corpuscular HGB Conc 33.7 g/dl (31.0-36.0); Mean Corpuscular Hemoglobin 28.2 pg (27.0-33.0); Mean Corpuscular Volume 83.6 fL (80.0-98.0); Monocytes Absolute Auto 0.5 X10*3/uL (0.1-1.2); Monocytes Percent Auto 8.4 % (2-11); Neutrophils Absolute Auto 3.3 x10*3/uL (2.0-8.3); Neutrophils Percent Auto 56.9 % (45-73); Platelet Count 203 X10*3/uL (160-400); Red Blood Count 5.81 X10*6/uL (4.60-5.80); Red Cell Distribution Width 13.4 % (11.0-16.0); White Blood Count 5.7 X10*3/uL (4.8-10.8)
[2023-06-13 09:19] LABS: Alanine Aminotransferase 34 U/L (0-40); Albumin Level 4.4 g/dL (3.5-5.0); Alkaline Phosphatase 49 U/L (39-117); Anion Gap 13 (12-20); Aspartate Amino Transferase 31 U/L (5-37); Bilirubin Total 1.5 mg/dL (0.0-1.0); Blood Urea Nitrogen 10 mg/dL (9-16); Carbon Dioxide 27 mmol/L (22-29); Chloride 104 mmol/L (96-108); Cholesterol 172 mg/dL (<200); Estimated Glomerular Filt Rate > 60; Glucose Fasting 89 mg/dL (60-99); HDL Cholesterol 43 mg/dL (>40); LDL Cholesterol Calculated 104 mg/dL (<100); Potassium 4.2 mmol/L (3.3-5.1); Sodium 140 mmol/L (135-145); Total Protein 7.7 g/dL (6.5-8.0); Triglycerides 127 mg/dL (<150)
== END 2023-06-13 07:40 | disposition home or self-care (01) ==
LOC: HO.LAB 07:39
PROVIDERS: PCP Internal Medicine; Visit Provider Internal Medicine
DX: E78.00 Pure hypercholesterolemia, unspecified (principal); I10 Essential (primary) hypertension
CPT/HCPCS: 36415; 80053; 80061; 85025

== ENCOUNTER 2023-06-23 13:54 | Outpatient (AMB) | payer BC, SELFPAY ==
[2023-06-23 14:05] VITALS: BP 110/66; PULSE 75; O2SAT 97; BMI 30.4
--- NOTE | 2023-06-23 14:05 | MHC.PC.OV ---
Vital Signs 06/23/23 14:05 Height 5 ft 10 in Weight 212 lb BMI 30.4 BP 110/66 Blood Pressure Location Lt brachial Position Sitting Pulse 75 Pulse Source Pulse Oximeter Pulse Oximetry (%) 97 Oxygen Delivery Method Room Air Intake Visit Reasons: hyperlipidemia Leather Stretcher Required: No Allergies No Known Allergies Allergy (Verified 06/23/23 14:27) Medication List - Last Reconciled 06/23/23 by Patrick Brown MD atorvastatin 10 mg PO BEDTIME 90 days cholecalciferol (vitamin D3) 25 mcg PO DAILY omeprazole magnesium 20 mg PO DAILY 90 days Tobacco use date assessed: 06/23/23 Dental Screening Dental Screen Date: 06/23/23 Did you have a dental visit in the last 12 months?: Yes Did you have a dental problem in the last 6 months where you did not have access to dental care?: No Was dental information given to patient?: Patient has dentist HPI hyperlipidemia HPI Details Patient comes in today for his follow up visit States that he feels okay Has gained some weight lately as he just got back from vacation a couple of weeks ago He denies any headaches or dizziness Denies any chest pains, no SOB No nausea/vomiting, no abdominal pain No change in bowel habits noted Had his follow up labs done a couple of weekends ago - to discuss his results [facility] Medical History GERD without esophagitis Overweight (BMI 25.0-29.9) Vitamin D deficiency Pure hypercholesterolemia Surgical History History of elbow surgery History of esophagogastroduodenoscopy (EGD) Hx of colonoscopy History of surgery Family History Father No problems noted. Mother No problems noted. 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 1. Little interest or pleasure in doing things: not at all 2. Feeling down, depressed, or hopeless: not at all 3. Trouble falling or staying asleep, or sleeping too much: not at all 4. Feeling tired or having little energy: not at all 5. Poor appetite or overeating: not at all 6. Feeling bad about yourself - or that you are a failure or have let yourself or your family down: not at all 7. Trouble concentrating on things, such as reading the newspaper or watching television: not at all 8. Moving or speaking so slowly that other people could have noticed. Or the opposite - being so fidgety or restless that you have been moving around a lot more than usual: not at all 9. Thoughts that you would be better off or of hurting yourself in some way: not at all Total score: 0 Depression Screening Interpretation: Negative Depression Screening Done: Yes 18089 - PHQ-9 Billing: Yes Source: Developed by Drs. Pankaj Suarez, Geeta Head, Benedicto Borja and colleagues, with an educational kaz from [employer] Thrive Questionnaire Date Thrive assessed: 06/23/23 I am a: Patient What is your living situation today?: I have a steady place to live Within the past 12 months, did the food you bought not last and you didn't have the money to get more?: Never true Within the past 12 months, did you worry whether your food would run out before you got money to buy more?: Never true Do you have trouble paying for medicines?: No Do you have trouble getting transportation to medical appointments?: No Do you have trouble paying your heating and electricity bill?: No Do you have trouble taking care of your child, family member or friend?: No Do you have trouble with day-to-day activities such as bathing, preparing meals, shopping, managing finances, etc.?: No Are you currently unemployed and looking for a job?: No Are you interested in more education?: No Please select the resources that you would like help with: None Currently or been in a relationship where the following occur: no concerns reported THRIVE Score: 0 AUDIT C Alcohol Use Questionnaire (AUDIT-C) 1. How often do you have a drink containing alcohol?: 2-3 times a week 2. How many drinks containing alcohol do you have on a typical day when you are drinking?: 1 or 2 3. How often do you have six or more drinks on one occasion?: Never Total Score: 3 Score Reviewed/Action Taken: Yes OSWALDO-7 AMB Questionnaire OSWALDO-7 Date OSWALDO - 7 assessed: 06/23/23 Source: Developed by Drs. Pankaj Suarez, Geeta Head, Benedicto Borja and colleagues, with an educational kaz from [employer] Review of Systems Const Denies chills, Denies fatigue, Denies fever(s) and Denies headache(s) ENT Denies dysphagia, Denies dizziness, Denies otalgia, Denies headache(s), Denies neck pain, Denies odynophagia and Denies sore throat Card Denies chest pain, Denies palpitations and Denies dyspnea Resp Denies cough and Denies dyspnea GI Denies abdominal pain, Denies constipation, Denies dysphagia, Denies diarrhea, Denies nausea, Denies odynophagia and Denies vomiting Denies dysuria, Denies nocturia and Denies urinary frequency Musc Denies back pain and Denies neck pain Skin/Breast Denies rash Neuro Denies dizziness and Denies headache(s) Endo Denies fatigue and Denies palpitations Physical exam (Primary Care) Vital Signs: Last Vital Signs Pulse 75 06/23/23 14:05 BP 110/66 06/23/23 14:05 Pulse Ox 97 06/23/23 14:05 Oxygen Delivery Method Room Air 06/23/23 14:05 BMI result Body Mass Index 30.4 Tobacco/Smoking Status: Tobacco use Status Tobacco use date assessed 06/23/23 06/23/23 14:06 Patient Tobacco Use Status Never used Tobacco 06/23/23 14:06 PHQ-9: PHQ-9 Score PHQ-9: Total score 0 06/23/23 14:18 Depression Screening Interpretation: Negative Thrive Assessment: Date of Thrive Assessment Date Thrive assessed 06/23/23 06/23/23 14:06 Currently or been in a relationship where the following occur: no concerns reported Const General: no acute distress and alert HENMT Ears: TM's normal bilaterally and EAC's normal Throat: Yes posterior oropharynx normal and Yes tonsils normal (no TP congestion) Neck Neck: Yes no lymphadenopathy and Yes supple Resp Auscultation: clear to auscultation bilaterally, no rales and no wheezes Cardio Rate: regular rate Rhythm: regular rhythm Heart sounds: no murmurs GI Palpation (GI): Soft to palpation and nontender Auscultation: normal bowel sounds General: Yes no CVA tenderness Back/Spine/Pelvis Back: no CVA tenderness Skin Rashes: no rashes Extrem General: Yes no clubbing, cyanosis or edema Results Reviewed Results Reviewed: Laboratory Tests 06/13/23 07:57 WBC 5.7 Hgb 16.4 Hct 48.6 Plt Count 203 Sodium 140 Potassium 4.2 Creatinine 1.02 Estimated GFR > 60 Fasting Glucose 89 Calcium 10.0 Total Bilirubin 1.5 H AST 31 ALT 34 Triglycerides 127 Cholesterol 172 LDL Cholesterol, Calc 104 H HDL Cholesterol 43 Assessment and Plan Assessment & Plan (1) Pure hypercholesterolemia: Code(s): E78.00 - Pure hypercholesterolemia, unspecified Plan: Results of his labs done a couple of weekends ago reviewed and discussed with patient Reinforced low cholesterol diet Continue Atorvastatin 10 mg QD Will recheck his labs and fasting lipids in 4 months for follow up (2) GERD without esophagitis: Comment: ED-08/06- GERD- EKG no ischemia, U/S no stones- ppi- avoid culprits Get- EGD Code(s): K21.9 - Gastro-esophageal reflux disease without esophagitis Plan: Dietary restrictions reinforced Continue Omeprazole 20 mg QD (3) Vitamin D deficiency: Code(s): E55.9 - Vitamin D deficiency, unspecified Plan: Continue Vitamin D3 1000 units QD (4) Obesity (BMI 30-39.9): Code(s): E66.9 - Obesity, unspecified Plan: Reinforced diet/exercise as tolerated/lose weight - he has gained some weight lately Plan Follow up in 4 months Orders: Orders Comprehensive [place]. Panel Fast 4 Months E78.00 - Pure hypercholesterolemia, unspecified Vitamin D 25-OH Total 4 Months E55.9 - Vitamin D deficiency, unspecified TSH reflex Free T4 4 Months E78.00 - Pure hypercholesterolemia, unspecified UA CC w/rflx Micro + Cult 4 Months R30.0 - Dysuria Lipid Panel 4 Months E78.00 - Pure hypercholesterolemia, unspecified Coding Level of Care Code Est Pt Level 4 (02165) Diagnoses Pure hypercholesterolemia E78.00 GERD without esophagitis K21.9 Vitamin D deficiency E55.9 Obesity (BMI 30-39.9) E66.9
== END 2023-06-23 14:34 | disposition home or self-care (01) ==
PROVIDERS: PCP Internal Medicine; Visit Provider Internal Medicine
DX: E78.00 Pure hypercholesterolemia, unspecified (principal); K21.9 Gastro-esophageal reflux disease without esophagitis; Z68.30 Body mass index [BMI] 30.0-30.9, adult; E66.9 Obesity, unspecified; E55.9 Vitamin D deficiency, unspecified
CPT/HCPCS: 99214

== ENCOUNTER 2024-01-23 08:31 | Outpatient (REF) | payer BC, SELFPAY ==
[2024-01-23 10:30] LABS: Appearance Urine Clear; Color Urine Yellow; Glucose Urine UA Negative (Negative); Leukocyte Esterase Urine Negative (Negative); Nitrite Urine Negative (Negative); Specific Gravity - Urine 1.025 (1.005-1.025); Urine Blood Negative (Negative); Urine Ketones Negative (Negative); Urine Protein Negative (Neg-Trace)
[2024-01-23 11:09] LABS: Alanine Aminotransferase 29 U/L (0-40); Albumin Level 4.3 g/dL (3.5-5.0); Alkaline Phosphatase 47 U/L (39-117); Anion Gap 13 (12-20); Aspartate Amino Transferase 34 U/L (5-37); Bilirubin Total 1.2 mg/dL (0.0-1.0); Blood Urea Nitrogen 11 mg/dL (9-16); Calcium 9.7 mg/dL (8.4-10.2); Carbon Dioxide 28 mmol/L (22-29); Chloride 103 mmol/L (96-108); Cholesterol 160 mg/dL (<200); Estimated Glomerular Filt Rate > 60; Glucose Fasting 81 mg/dL (60-99); HDL Cholesterol 43 mg/dL (>40); LDL Cholesterol Calculated 91 mg/dL (<100); Sodium 140 mmol/L (135-145); TSH reflex Free T4 1.51 uIU/mL (0.32-4.0); Total Protein 7.3 g/dL (6.5-8.0); Triglycerides 131 mg/dL (<150); Vitamin D 25-OH Total 38.8 ng/mL (>30)
--- OUTSIDE RECORDS SUMMARY | 2024-01-27 11:41 | XMS_ITS ---
Author Name [facility] Organization Unknown History of Medication Use Medication Directions Dispensed Refills Start Date End Date Stat naproxen 500 mg tablet TAKE 1 TABLET (ORAL) 2 TIMES PER DAY FOR 2 WEEKS 08/01/2022 active atorvastatin 10 mg tablet TAKE 1 TABLET BY MOUTH AT BEDTIME 08/01/2022 active Problems Problem Status Onset Date Problem Type Date of Resoluti on Source Traumatic rupture of distal tendon of right biceps brachii active 2022-07-30 ProblemAct ENS_AONECT
== END 2024-01-23 08:32 | disposition home or self-care (01) ==
LOC: HO.LAB 08:31
PROVIDERS: PCP Internal Medicine; Visit Provider Internal Medicine
DX: E78.00 Pure hypercholesterolemia, unspecified (principal); E55.9 Vitamin D deficiency, unspecified; I10 Essential (primary) hypertension
CPT/HCPCS: 36415; 80053; 80061; 81003; 82306; 84443

== ENCOUNTER 2024-02-01 14:48 | Outpatient (AMB) | payer BC, SELFPAY ==
[2024-02-01 14:57] VITALS: BP 110/76; PULSE 76; O2SAT 98; BMI 31.0
--- NOTE | 2024-02-01 14:57 | MHC.PC.OV ---
Vital Signs 02/01/24 14:57 Height 5 ft 10 in Weight 216 lb BMI 31.0 BP 110/76 Blood Pressure Location Lt brachial Position Sitting Pulse 76 Pulse Source Pulse Oximeter Pulse Oximetry (%) 98 Oxygen Delivery Method Room Air Intake Visit Reasons: hyperlipidemia and gerd Psychological Tests Sales Agent Required: No Accompanied by: Self / Same As Patient Allergies No Known Allergies Allergy (Verified 02/01/24 15:26) Medication List - Last Reconciled 02/01/24 by CECE Harris atorvastatin 10 mg PO BEDTIME 90 days cholecalciferol (vitamin D3) 25 mcg PO DAILY omeprazole magnesium 20 mg PO DAILY 90 days Tobacco use date assessed: 02/01/24 Dental Screening Dental Screen Date: 02/01/24 Did you have a dental visit in the last 12 months?: Yes Did you have a dental problem in the last 6 months where you did not have access to dental care?: No Was dental information given to patient?: Patient has dentist HPI hyperlipidemia and gerd HPI Details Patient is a 40-year-old male with significant past medical history of GERD without esophagitis, vitamin-D deficiency, hypercholesteremia. The patient presenting for a four-month follow-up. The patient had had blood work done and they were reviewed today. He reports that he has been going to the gym more frequent. He reports that he has been well hydrated. The patient states that his problem is food. He reports that some days he does well but he is not consistent. The patient reports that his heartburn has improved significantly. He reports that he completely stopped drinking milk and ever since his heartburn and bloatedness has been well managed on the omeprazole. Patient denies feeling fatigued, he denies wanting to sleep during the daytime. He feels that his energy has been okay. He reports that he is compliant with all his medications. He denies chest pain, shortness of breath, heart palpitations, and dizziness. He also denied abdominal pain, or any changes in his bowel movements. The patient also wanted to know about his colonoscopy scheduled. He reports that when he had his colonoscopy done they told him it would need it to be repeated in 3 years due to poor visualization. The patient was informed that is next colonoscopy to around July,. The patient was also notified that his colonoscopy will be reordered on his follow-up visit in 4 months. [facility] Medical History GERD without esophagitis Overweight (BMI 25.0-29.9) Vitamin D deficiency Pure hypercholesterolemia Surgical History History of elbow surgery History of esophagogastroduodenoscopy (EGD) Hx of colonoscopy History of surgery Family History Father No problems noted. Mother No problems noted. 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 1. Little interest or pleasure in doing things: not at all 2. Feeling down, depressed, or hopeless: not at all 3. Trouble falling or staying asleep, or sleeping too much: not at all 4. Feeling tired or having little energy: not at all 5. Poor appetite or overeating: not at all 6. Feeling bad about yourself - or that you are a failure or have let yourself or your family down: not at all 7. Trouble concentrating on things, such as reading the newspaper or watching television: not at all 8. Moving or speaking so slowly that other people could have noticed. Or the opposite - being so fidgety or restless that you have been moving around a lot more than usual: not at all 9. Thoughts that you would be better off or of hurting yourself in some way: not at all Total score: 0 Depression Screening Interpretation: Negative Depression Screening Done: Yes 08298 - PHQ-9 Billing: Yes Source: Developed by Drs. Pankaj Suarez, Geeta Head, Benedicto Borja and colleagues, with an educational kaz from [employer]. Thrive Questionnaire Date Thrive assessed: 02/01/24 I am a: Patient What is your living situation today?: I have a steady place to live Within the past 12 months, did the food you bought not last and you didn't have the money to get more?: Never true Within the past 12 months, did you worry whether your food would run out before you got money to buy more?: Never true Do you have trouble paying for medicines?: No Do you have trouble getting transportation to medical appointments?: No Do you have trouble paying your heating and electricity bill?: No Do you have trouble taking care of your child, family member or friend?: No Do you have trouble with day-to-day activities such as bathing, preparing meals, shopping, managing finances, etc.?: No Are you currently unemployed and looking for a job?: No Are you interested in more education?: No Please select the resources that you would like help with: None Currently or been in a relationship where the following occur: No concerns reported THRIVE Score: 0 AUDIT C Alcohol Use Questionnaire (AUDIT-C) 1. How often do you have a drink containing alcohol?: Monthly or less 2. How many drinks containing alcohol do you have on a typical day when you are drinking?: 1 or 2 3. How often do you have six or more drinks on one occasion?: Monthly Total Score: 3 Score Reviewed/Action Taken: Yes OSWALDO-7 AMB Questionnaire OSWALDO-7 Date OSWALDO - 7 assessed: 02/01/24 Feeling nervous, anxious, or on edge: 0 = Not at all Not being able to stop or control worryin = Not at all Worrying too much about different things: 0 = Not at all Trouble relaxin = Not at all Being so restless that it is hard to sit still: 0 = Not at all Becoming easily annoyed or irritable: 0 = Not at all Feeling afraid as if something awful might happen: 0 = Not at all Total OSWALDO-7 score (0-4 normal; 5-9 mild; 10-14 moderate; 15-21 severe): 0 Source: Developed by Drs. Pankaj Suarez, Geeta Head, Benedicto Borja and colleagues, with an educational kaz from [employer] OSWALDO-7 Assessment Billing OSWALDO-7 Assessment Tool: OSWALDO-7 Assessment 72834 Review of Systems Const Details: Const Denies chills, Denies fatigue, Denies fever(s), Denies headache(s) and Denies weakness ENT Denies dizziness and Denies headache(s) Card Denies chest pain, Denies lightheadedness, Denies dyspnea and Denies other (Palpitations) Resp Denies cough, Denies dyspnea, Denies wheezing and Denies other ( shortness of breath) GI Denies abdominal pain, Denies melena, Denies hematochezia, Denies change in bowel habits, Denies dyspepsia and Denies nausea Denies hematuria and Denies dysuria Musc Denies abnormal gait, Denies myalgias, Denies arthralgias, Denies numbness and Denies tingling Skin/Breast Denies rash, Denies unusual bruising and Denies wounds Neuro Denies abnormal gait, Denies dizziness, Denies headache(s), Denies memory loss, Denies numbness, Denies Sensory deficit (Neuro), Denies tingling and Denies weakness Psych Denies anxiety, Denies depression, Denies memory loss Endo Denies cold intolerance, Denies fatigue, Denies heat intolerance, Denies polydipsia and Denies polyuria Aller/Immun Denies wheezing Physical exam (Primary Care) Vital Signs: Last Vital Signs Pulse 76 02/01/24 14:57 BP 110/76 02/01/24 14:57 Pulse Ox 98 02/01/24 14:57 Oxygen Delivery Method Room Air 02/01/24 14:57 BMI result Body Mass Index 31.0 Tobacco/Smoking Status: Tobacco use Status Tobacco use date assessed 02/01/24 02/01/24 14:58 Patient Tobacco Use Status Never used Tobacco 02/01/24 14:58 PHQ-9: PHQ-9 Score PHQ-9: Total score 0 02/01/24 17:14 Depression Screening Interpretation: Negative Thrive Assessment: Date of Thrive Assessment Date Thrive assessed 02/01/24 02/01/24 14:58 Currently or been in a relationship where the following occur: No concerns reported Const Other: General: no acute distress and well developed Nutritional Appearance: well nourished Orientation/consciousness: patient oriented x3 HENMT Head: Yes normocephalic and Yes atraumatic Eyes General: appearance normal, both eyes and all related structures Pupils: Equal, round and reactive pupils present EOM: EOMs intact bilaterally Resp Effort & Inspection: normal respiratory effort Auscultation: clear to auscultation bilaterally Cardio Rate: regular rate Rhythm: regular rhythm Heart sounds: S1 normal heart sound present, S2 normal heart sound present, no gallops, no murmurs and no rubs GI Palpation (GI): No Abdominal aortic bruit present, Soft to palpation, nontender, No hepatosplenomegaly present and No Rebound tenderness present Auscultation: normal bowel sounds General: Yes no CVA tenderness Back/Spine/Pelvis Back: no CVA tenderness Cervical Spine: cervical ROM normal and No Cervical spine tenderness Thoracic/Lumbar Spine: thoraco-lumbar ROM normal, No pain with thoraco-lumbar ROM, No thoracic spinal tenderness and No lumbar spinal tenderness Extrem General: Yes normal to inspection, No edema and No calf tenderness Skin General: warm and dry. Normal skin color. Normal skin turgor Lesions: no lesions Rashes: no rashes Trauma: no lacerations or abrasions Wounds: no wounds Nails: normal Neuro General: patient oriented x3, gait normal and no focal neuro deficit Cranial nerves: Yes Equal, round and reactive pupils present Cognition (Neuro): normal cognition Gait exam (Neuro): Normal gait present Sensory Exam: No Sensory deficit (Neuro) Psych Appearance: grossly normal Affect: normal affect Attitude: cooperative Thought process: Normal thought process present Results Reviewed Results Reviewed: Laboratory Tests 06/13/23 01/23/24 07:57 08:59 WBC 5.7 RBC 5.81 H Hgb 16.4 Hct 48.6 Plt Count 203 Sodium 140 Potassium 4.0 Chloride 103 Carbon Dioxide 28 BUN 11 Creatinine 0.95 Estimated GFR > 60 Fasting Glucose 81 Total Bilirubin 1.2 H AST 34 ALT 29 Triglycerides 131 Cholesterol 160 LDL Cholesterol, Calc 91 HDL Cholesterol 43 25-OH Vitamin D Total 38.8 TSH 1.51 Coding Level of Care Code Est Pt Level 4 (84399) Diagnoses Obesity (BMI 30-39.9) E66.9 GERD without esophagitis K21.9 Vitamin D deficiency E55.9 Pure hypercholesterolemia E78.00 Additional Codes OSWALDO-7 Assessment Billing - OSWALDO-7 Assessment Tool: OSWALDO-7 Assessment 51816 ([id number]) PHQ-9 - 23611 - PHQ-9 Billing: Yes ([id number]) Assessment & Plan Assessment & Plan (1) Obesity (BMI 30-39.9): Code(s): E66.9 - Obesity, unspecified Category: Medical Plan: Diet/exercise discussed in detail Encouraged to exercise for at least 30 minutes a day/5 days a week Healthy eating discussed. Encouraged to eat fruits/vegetables, protein-fish/baked chicken, and to avoid salty/fried foods, sweets, caffeine and carbohydrates. Encouraged to increase water intake 6-8 glasses a day Labs ordered for follow-up appointment in 4 months. (2) GERD without esophagitis: Comment: ED-08/06- GERD- EKG no ischemia, U/S no stones- ppi- avoid culprits Get- EGD Code(s): K21.9 - Gastro-esophageal reflux disease without esophagitis Category: Medical Plan: Reinforce dietary restrictions Continue omeprazole magnesium 20 mg p.o. daily (3) Vitamin D deficiency: Code(s): E55.9 - Vitamin D deficiency, unspecified Category: Medical Plan: Continue on cholecalciferol 25 mcg daily We will recheck labs and advise on follow-up 4 months appointment. (4) Pure hypercholesterolemia: Code(s): E78.00 - Pure hypercholesterolemia, unspecified Category: Medical Plan: Results of recent labs were reviewed in detail LDL level improved from 104-91 Continue and atorvastatin 10 mg at bedtime Continue dietary management and exercise as tolerated. Labs ordered to be done for his 4 month follow-up appointment Plan Follow up in 4 months Orders: Orders Complete Blood Count Auto Diff 4 Months E55.9 - Vitamin D deficiency, unspecified, E66.9 - Obesity, unspecified, E78.00 - Pure hypercholesterolemia, unspecified, K21.9 - Gastro-esophageal reflux disease without esophagitis Comprehensive [place]. Panel Fast 4 Months E55.9 - Vitamin D deficiency, unspecified, E66.9 - Obesity, unspecified, E78.00 - Pure hypercholesterolemia, unspecified, K21.9 - Gastro-esophageal reflux disease without esophagitis Lipid Panel 4 Months E55.9 - Vitamin D deficiency, unspecified, E66.9 - Obesity, unspecified, E78.00 - Pure hypercholesterolemia, unspecified, K21.9 - Gastro-esophageal reflux disease without esophagitis TSH reflex Free T4 4 Months E55.9 - Vitamin D deficiency, unspecified, E66.9 - Obesity, unspecified, E78.00 - Pure hypercholesterolemia, unspecified, K21.9 - Gastro-esophageal reflux disease without esophagitis Glucose Fasting 4 Months E55.9 - Vitamin D deficiency, unspecified, E66.9 - Obesity, unspecified, E78.00 - Pure hypercholesterolemia, unspecified, K21.9 - Gastro-esophageal reflux disease without esophagitis UA CC w/rflx Micro + Cult 4 Months E55.9 - Vitamin D deficiency, unspecified, E66.9 - Obesity, unspecified, E78.00 - Pure hypercholesterolemia, unspecified, K21.9 - Gastro-esophageal reflux disease without esophagitis Vitamin D 25-OH Total 4 Months E55.9 - Vitamin D deficiency, unspecified, E66.9 - Obesity, unspecified, E78.00 - Pure hypercholesterolemia, unspecified, K21.9 - Gastro-esophageal reflux disease without esophagitis
== END 2024-02-01 15:54 | disposition home or self-care (01) ==
PROVIDERS: PCP Internal Medicine
DX: E66.9 Obesity, unspecified (principal); K21.9 Gastro-esophageal reflux disease without esophagitis; E78.00 Pure hypercholesterolemia, unspecified; Z68.31 Body mass index [BMI] 31.0-31.9, adult; E55.9 Vitamin D deficiency, unspecified

== ENCOUNTER → 2024-02-01 14:48 | Outpatient (BNVA) | payer BC, SELFPAY | PROVIDERS: PCP Internal Medicine | DX: E66.9 Obesity, unspecified (principal); Z68.31 Body mass index [BMI] 31.0-31.9, adult; K21.9 Gastro-esophageal reflux disease without esophagitis; E55.9 Vitamin D deficiency, unspecified; E78.00 Pure hypercholesterolemia, unspecified; Z79.899 Other long term (current) drug therapy | CPT/HCPCS: 96127 ==

== ENCOUNTER 2024-05-28 08:40 | Outpatient (REF) | payer BC, SELFPAY ==
--- OUTSIDE RECORDS SUMMARY | 2024-05-28 08:43 | XMS_ITS | Data Portability ---
Author Organization [place] [facility] [place] Address [address] [place] [address] Care Team Providers Care Custom Framing Specialist Name Role Phone ISSAC LAURA Hot Metal Mixer Operator Helper Assessment Encounter Date Assessment Date Assessment LastModified by Organization Details LastModified Time 07/29/2022 07/29/2022 INTERIM HISTORY: The patient presents today for an impairment rating biceps tendon rupture right elbow. The patient sustained an injury to his right elbow at work on May 30, 2021. Evaluation including MRI revealed complete rupture distal biceps tendon right elbow with significant proximal retraction of the biceps tendon. The patient was initially evaluated by me more than a month after his injury on July 03, 2021. He underwent reconstruction distal biceps tendon right elbow July 09, 2022. Primary repair of the distal bicep tendon could not be performed secondary to the significant retraction of the biceps tendon. Reconstruction with tendon allograft was performed successfully. He returned to work without restrictions December 23, 2021. He is presently doing well at work with no limitations. There are no appreciable complaints. EXAMINATION OF THE RIGHT ELBOW: Skin is intact. Scar unremarkable without tenderness or hypersensitivity. Elbow flexion and extension measures 140/0 degrees. Forearm rotation measures full. There is no swelling. There are no masses. There is no ecchymosis. There is no tenderness at the medial collateral ligament. There is no tenderness at the lateral collateral ligament. The collateral ligaments are stable. There is no tenderness throughout the distal humerus. There is no tenderness at the olecranon fossa. There is no tenderness at the medial and lateral epicondyles. Provocative testing for medial epicondylitis is negative. Provocative testing for lateral epicondylitis is negative. There is no tenderness at the proximal extent of the supinator muscle. Provocative testing for radial tunnel syndrome is negative. There is no tenderness along the course of the ulnar nerve, and there is no subluxation of the ulnar nerve. There is no tenderness at the radial head. There is no tenderness at the radiocapitellar joint. The radiocapitellar joint is stable. The elbow is stable. There is no tenderness along the biceps and triceps tendons. Biceps function excellent. There is no tenderness at the olecranon. Neurovascular status is intact. RADIOGRAPHS: None DIAGNOSIS: Status post reconstruction distal biceps tendon with tendon allograft right elbow DISCUSSION: The patient has reached maximal medical improvement. [employer] Guides to the Evaluation of Permanent Impairment sixth edition diagnosis based impairment is employed for the impairment rating. Distal biceps tendon rupture: Impairment class 0 - no residual findings +/- surgical treatment. Functional history - QuickDASH 7 - grade modifier 0. Physical examination - grade modifier 0. Clinical studies -grade modifier 0. Upper extremity impairment 0%. Whole person impairment 0% ramon Not available 07/30/2022 17:38:19 Plan of Treatment Reminders Order Date Submit Date Provider Last Modified By Organization Details Last Modified Time Details Appointments None record ed. Lab None record ed. Referral None record ed. Procedures None record ed. Surgeries None record ed. Imaging None record ed. Medication Orders None record ed. Patient TargetsNo targets recorded. Patient InstructionsNo instructions recorded. Reason for Referral None Reported. Problems Name Problem SNOMED Code Status Onset Date Resolution Date Notes Provider Name and Address Organization Details Recorded Time Traumatic rupture of distal tendon of right biceps brachii [id number] 100 Active 2022 Huey Moe MD [address], [place], [address], [place] [facility] [place], 17:39:36 Problem Notes None recorded. Medical Equipment None Reported. Medications Name Sig Start Date Stop Date Status Note LastModified by Organization Details LastModified Time atorvastatin 10 mg tablet TAKE 1 TABLET BY MOUTH AT BEDTIME active Not Available Not Available No t Available naproxen 500 mg tablet TAKE 1 TABLET (ORAL) 2 TIMES PER DAY FOR 2 WEEKS active Not Available Not Available No t Available Vitals None Recorded Social History None recorded. Functional Status None recorded. Mental Status None recorded. Family History Nothing Reported. Medical History No medical history recorded. Past Encounters Encounter ID Performer Location Encounter Start Date Encounter Closed Date Diagnosis/Indication Diagnosis SNOMED-CT Code Diagnosis ICD10 Code Diagnosis Note [id number] MD VIDAL Taylor[address] [address] 07/29/2022 09:11:36 07/29/2022 09:22:33 Traumatic rupture of distal tendon of right biceps brachii [id number] M66.821 Health Concerns Section Related Observation LastModified by Organization Detai ls LastModified Time None Recorded Concern Status LastModified by Organization Details LastModified Time None Recorded Advance Directives Directive None Recorded Payers Encounter Date Sequence Insurance Name Policy Number Policy [place] Covered Member ID [place] Member ID Guarantor Name 07/29/2022 INDEMNITY INSURANCE [employer] [facility] Kisha Horton
--- OUTSIDE RECORDS SUMMARY | 2024-05-28 08:43 | XMS_ITS | Clinical Summary ---
Author Organization [employer] [facility] ity Address [address] [place] [address] Care Team Providers Care Music Specialist Name Role Phone Patrick Brown MD Primary Care Provider Surgical History Surgery Date Site/Laterality Comments OTHER SURGICAL HISTORY 07/09/2021 Right PROCEDURE:right distal biceps tendon repair;COMMENT:Dr. Huey Moe, [facility] [place] Medical History Medical History Date Comments High cholesterol DX:High cholest jake Family History Medical History Relation Name Comments Diabetes Mother Relation Name Status Comments Mother Social History Tobacco Use Types Packs/Day Years Used Date Smoking Tobacco: Never Smokeless Tobacco: Never Alcohol Use Standard Drinks/Week Comments Yes 0 (1 standard drink = 0.6 oz pur e alcohol) Sex and Gender Information Value Date Recorded Sex Assigned at Not on file Legal Sex Male 12:37 PM EST Gender Identity Not on file Sexual Orientation Not on file Obstetrics History Last Filed Vital Signs Vital Sign Reading Time Taken Comments Blood Pressure - - Pulse - - Temperature - - Respiratory Rate - - Oxygen Saturation - - Inhaled Oxygen Concentration - - Weight 88.9 kg (196 lb) 12/04/2021 3:27 PM EDT Height 177.8 cm (5' 10 ) 12/04/2021 3:27 PM EDT Body Mass Index 28.12 12/04/2021 3:27 PM EDT Plan of Treatment Health Maintenance Due Date Last Done Comments DTaP,Tdap,and Td Vaccines (1 - Tdap) 04/24/1994 Hepatitis B Vaccines (1 of 3 - 19+ 3-dose series) 04/24/1994 Cholesterol Screening (Lipid Panel) 01/14/2022 Colorectal Cancer Screening: Colonoscopy 01/14/2022 Depression Screening 01/14/2022 HIV Screening 01/14/2022 Hepatitis C Screening 01/14/2022 Social Influencers of Health Screening 01/14/2022 COVID-19 Vaccine (2023-2 5 season) 2023 Influenza Vaccine (Season Ended) 2024 HIB Vaccines Aged Out No longer eligi ble based on patient's age to complete this topic HPV Vaccines Aged Out No longer eligi ble based on patient's age to complete this topic Hepatitis A Vaccines Aged Out No long er eligible based on patient's age to complete this topic IPV Vaccines Aged Out No longer eligi ble based on patient's age to complete this topic MMR Vaccines Aged Out No longer eligi ble based on patient's age to complete this topic Meningococcal ACWY Vaccine Aged Out N o longer eligible based on patient's age to complete this topic Meningococcal B Vaccine Aged Out No l onger eligible based on patient's age to complete this topic Pneumococcal Vaccine: Pediat rics (0 to 5 Years) and At-Risk Patients (6 to 64 Years) Aged Out No longer eligible b ased on patient's age to complete this topic RSV Immunization Patients Un gopal 20 months Aged Out No longer eligible b ased on patient's age to complete this topic Varicella Vaccines Aged Out No longer eligible based on patient's age to complete this topic Care Teams Music Specialist Relationship Specialty Start Date End Date Patrick Brown MD [address] [place] [address] Dr [address] KARIS Pickard PCP - General Internal Medicine 06/17/21
[2024-05-28 09:19] LABS: MANUAL DIFF FLAG NO
[2024-05-28 10:44] LABS: Basophils Absolute Auto 0.1 X10*3/uL (0.0-0.2); Basophils Percent Auto 0.9 % (0-2); Eosinophils Absolute Auto 0.1 X10*3/uL (0.0-0.4); Eosinophils Percent Auto 1.7 % (0-4); Hemoglobin 16.1 g/dl (14.0-18.0); Imm Gran Abs Auto 0.01 X10*3/uL (0.00-0.03); Imm Gran Pct Auto 0.2 % (0.0-0.4); Lymphocytes Absolute Auto 1.9 X10*3/uL (1.2-4.9); Mean Corpuscular HGB Conc 32.9 g/dl (31.0-36.0); Mean Corpuscular Hemoglobin 27.6 pg (27.0-33.0); Mean Corpuscular Volume 83.9 fL (80.0-98.0); Mean Platelet Volume 10.5 fL (9.4-12.4); Monocytes Absolute Auto 0.4 X10*3/uL (0.1-1.2); Monocytes Percent Auto 7.7 % (2-11); Neutrophils Absolute Auto 2.8 x10*3/uL (2.0-8.3); Neutrophils Percent Auto 53.5 % (45-73); Platelet Count 225 X10*3/uL (160-400); Red Blood Count 5.84 X10*6/uL (4.60-5.80); Red Cell Distribution Width 13.5 % (11.0-16.0); White Blood Count 5.3 X10*3/uL (4.8-10.8)
[2024-05-28 10:55] LABS: Appearance Urine Clear; Color Urine Yellow; Glucose Urine UA Negative (Negative); Leukocyte Esterase Urine Negative (Negative); Nitrite Urine Negative (Negative); PH 6.5 (5.0-9.0); Specific Gravity - Urine 1.025 (1.005-1.025); Urine Blood Negative (Negative); Urine Ketones Trace mg/dL (Negative); Urine Protein Negative (Neg-Trace)
[2024-05-28 11:24] LABS: Alanine Aminotransferase 33 U/L (0-40); Albumin Level 4.4 g/dL (3.5-5.0); Alkaline Phosphatase 53 U/L (39-117); Anion Gap 10 (12-20); Aspartate Amino Transferase 32 U/L (5-37); Bilirubin Total 1.1 mg/dL (0.0-1.0); Blood Urea Nitrogen 14 mg/dL (9-16); Calcium 9.7 mg/dL (8.4-10.2); Carbon Dioxide 27 mmol/L (22-29); Chloride 106 mmol/L (96-108); Cholesterol 182 mg/dL (<200); Estimated Glomerular Filt Rate > 60; Glucose Fasting 87 mg/dL (60-99); HDL Cholesterol 49 mg/dL (>40); LDL Cholesterol Calculated 108 mg/dL (<100); Potassium 4.1 mmol/L (3.3-5.1); Sodium 139 mmol/L (135-145); Total Protein 7.6 g/dL (6.5-8.0); Triglycerides 128 mg/dL (<150)
[2024-05-28 11:41] LABS: Vitamin D 25-OH Total 40.3 ng/mL (>30)
== END 2024-05-28 08:41 | disposition home or self-care (01) ==
LOC: HO.LAB 08:40
PROVIDERS: PCP Internal Medicine
DX: E66.9 Obesity, unspecified (principal); E78.00 Pure hypercholesterolemia, unspecified; E55.9 Vitamin D deficiency, unspecified; K21.9 Gastro-esophageal reflux disease without esophagitis
CPT/HCPCS: 36415; 80053; 80061; 81003; 82306; 84443; 85025

== ENCOUNTER 2024-06-03 15:58 | Outpatient (AMB) | payer BC, SELFPAY ==
--- NOTE | 2024-06-03 15:59 | A.OFFPC_ITS ---
Vital Signs 06/03/24 16:00 Height 5 ft 10 in Weight 212 lb 2 oz BMI 30.4 BP 124/82 Blood Pressure Location Lt brachial Position Sitting Pulse 74 Pulse Source Pulse Oximeter Pulse Oximetry (%) 95 Oxygen Delivery Method Room Air Intake Visit Reasons: hyperlipemia Letterpress Setter Required: No Accompanied by: Self / Same As Patient Allergies No Known Allergies Allergy (Verified 06/03/24 16:29) Medication List - Last Reconciled 06/03/24 by Patrick Brown MD atorvastatin 10 mg PO BEDTIME 90 days cholecalciferol (vitamin D3) 25 mcg PO DAILY omeprazole magnesium 20 mg PO DAILY 90 days Tobacco use date assessed: 06/03/24 Dental Screening Dental Screen Date: 06/03/24 Did you have a dental visit in the last 12 months?: Yes Did you have a dental problem in the last 6 months where you did not have access to dental care?: No Was dental information given to patient?: Patient has dentist HPI hyperlipemia HPI Details Patient comes in today for his follow up visit States that he feels okay He denies any headaches or dizziness Denies any chest pains, no SOB No nausea/vomiting, no abdominal pain No change in bowel habits noted Had his follow up labs done last week - to discuss his results Adds that he thinks it is time for his repeat colonoscopy as he recalls Dr. Reese telling him last time that he will need repeat colonoscopy in 3 years [facility] Medical History GERD without esophagitis Overweight (BMI 25.0-29.9) Vitamin D deficiency Pure hypercholesterolemia Surgical History History of elbow surgery History of esophagogastroduodenoscopy (EGD) Hx of colonoscopy History of surgery Family History Father No problems noted. Mother No problems noted. 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 1. Little interest or pleasure in doing things: not at all 2. Feeling down, depressed, or hopeless: not at all 3. Trouble falling or staying asleep, or sleeping too much: not at all 4. Feeling tired or having little energy: not at all 5. Poor appetite or overeating: not at all 6. Feeling bad about yourself - or that you are a failure or have let yourself or your family down: not at all 7. Trouble concentrating on things, such as reading the newspaper or watching television: not at all 8. Moving or speaking so slowly that other people could have noticed. Or the opposite - being so fidgety or restless that you have been moving around a lot more than usual: not at all 9. Thoughts that you would be better off or of hurting yourself in some way: not at all Total score: 0 Depression Screening Interpretation: Negative Depression Screening Done: Yes 31328 - PHQ-9 Billing: Yes Source: Developed by Drs. Pankaj Suarez, Geeta Head, Benedicto Borja and colleagues, with an educational kaz from [employer]. Thrive Questionnaire Date Thrive assessed: 06/03/24 I am a: Patient What is your living situation today?: I have a steady place to live Within the past 12 months, did the food you bought not last and you didn't have the money to get more?: Never true Within the past 12 months, did you worry whether your food would run out before you got money to buy more?: Never true Do you have trouble paying for medicines?: No Do you have trouble getting transportation to medical appointments?: No Do you have trouble paying your heating and electricity bill?: No Do you have trouble taking care of your child, family member or friend?: No Do you have trouble with day-to-day activities such as bathing, preparing meals, shopping, managing finances, etc.?: No Are you currently unemployed and looking for a job?: No Are you interested in more education?: No Please select the resources that you would like help with: None Currently or been in a relationship where the following occur: No concerns reported THRIVE Score: 0 AUDIT C Alcohol Use Questionnaire (AUDIT-C) 1. How often do you have a drink containing alcohol?: Monthly or less 2. How many drinks containing alcohol do you have on a typical day when you are drinking?: 3 or 4 3. How often do you have six or more drinks on one occasion?: Never Total Score: 2 Score Reviewed/Action Taken: Yes OSWALDO-7 AMB Questionnaire OSWALDO-7 Date OSWALDO - 7 assessed: 06/03/24 Feeling nervous, anxious, or on edge: 0 = Not at all Not being able to stop or control worryin = Not at all Worrying too much about different things: 0 = Not at all Trouble relaxin = Not at all Being so restless that it is hard to sit still: 0 = Not at all Becoming easily annoyed or irritable: 0 = Not at all Feeling afraid as if something awful might happen: 0 = Not at all Total OSWALDO-7 score (0-4 normal; 5-9 mild; 10-14 moderate; 15-21 severe): 0 Source: Developed by Drs. Pankaj Suarez, Geeta Head, Benedicto Borja and colleagues, with an educational kaz from [employer]. OSWALDO-7 Assessment Billing OSWALDO-7 Assessment Tool: OSWALDO-7 Assessment 53835 Review of Systems Const Denies chills, Denies fatigue, Denies fever(s) and Denies headache(s) ENT Denies dysphagia, Denies dizziness, Denies otalgia, Denies headache(s), Denies neck pain, Denies odynophagia and Denies sore throat Card Denies chest pain, Denies palpitations and Denies dyspnea Resp Denies chest congestion, Denies cough and Denies dyspnea GI Denies abdominal pain, Denies constipation, Denies dysphagia, Denies diarrhea, Denies nausea, Denies odynophagia and Denies vomiting Denies difficulty urinating, Denies dysuria, Denies nocturia and Denies urinary frequency Musc Denies back pain and Denies neck pain Skin/Breast Denies rash Neuro Denies dizziness and Denies headache(s) Endo Denies fatigue and Denies palpitations Physical exam (Primary Care) Vital Signs: Last Vital Signs Pulse 74 06/03/24 16:00 BP 124/82 06/03/24 16:00 Pulse Ox 95 06/03/24 16:00 Oxygen Delivery Method Room Air 06/03/24 16:00 BMI result Body Mass Index 30.4 Tobacco/Smoking Status: Tobacco use Status Tobacco use date assessed 06/03/24 06/03/24 16:07 Patient Tobacco Use Status Never used Tobacco 06/03/24 16:07 PHQ-9: PHQ-9 Score PHQ-9: Total score 0 06/03/24 16:30 Depression Screening Interpretation: Negative Thrive Assessment: Date of Thrive Assessment Date Thrive assessed 06/03/24 06/03/24 16:07 Currently or been in a relationship where the following occur: No concerns reported Const General: no acute distress and alert HENMT Ears: TM's normal bilaterally and EAC's normal Throat: Yes posterior oropharynx normal and Yes tonsils normal (no TP congestion) Neck Neck: Yes supple and No lymphadenopathy Thyroid: Thyroid normal Resp Auscultation: clear to auscultation bilaterally, no rales and no wheezes Cardio Rate: regular rate Rhythm: regular rhythm Heart sounds: no murmurs GI Palpation (GI): Soft to palpation and nontender Auscultation: normal bowel sounds General: Yes no CVA tenderness Back/Spine/Pelvis Back: no CVA tenderness Thoracic/Lumbar Spine: No lumbar spinal tenderness Skin Rashes: no rashes Extrem General: Yes no clubbing, cyanosis or edema Results Reviewed Results Reviewed: Laboratory Tests 05/28/24 05/28/24 09:16 09:17 WBC 5.3 Hgb 16.1 Hct 49.0 Plt Count 225 Sodium 139 Potassium 4.1 Creatinine 0.96 Estimated GFR > 60 Fasting Glucose 87 Calcium 9.7 AST 32 ALT 33 Triglycerides 128 Cholesterol 182 LDL Cholesterol, Calc 108 H HDL Cholesterol 49 25-OH Vitamin D Total 40.3 TSH 1.10 Ur Specific [place] 1.025 Urine Protein Negative Urine Glucose (UA) Negative Urine Blood Negative Urine Nitrite Negative Ur Leukocyte Esterase Negative Coding Level of Care Code Est Pt Level 4 (05866) Diagnoses Pure hypercholesterolemia E78.00 GERD without esophagitis K21.9 Vitamin D deficiency E55.9 Obesity (BMI 30-39.9) E66.9 Colon cancer screening Z12.11 Additional Codes OSWALDO-7 Assessment Billing - OSWALDO-7 Assessment Tool: OSWALDO-7 Assessment 58391 ([id number]) PHQ-9 - 92703 - PHQ-9 Billing: Yes ([id number]) Assessment & Plan Assessment & Plan (1) Pure hypercholesterolemia: Code(s): E78.00 - Pure hypercholesterolemia, unspecified Category: Medical Plan: Results of his labs done last week reviewed and discussed with patient - he is advised that his cholesterol numbers have increased slightly from previous Reinforced low cholesterol diet Continue Atorvastatin 10 mg QD Will recheck his labs and fasting lipids in 4 months for follow up (2) GERD without esophagitis: Comment: ED-08/06- GERD- EKG no ischemia, U/S no stones- ppi- avoid culprits Get- EGD Code(s): K21.9 - Gastro-esophageal reflux disease without esophagitis Category: Medical Plan: Dietary restrictions reinforced Continue Omeprazole 20 mg QD (3) Vitamin D deficiency: Code(s): E55.9 - Vitamin D deficiency, unspecified Category: Medical Plan: Continue Vitamin D3 1000 units QD (4) Obesity (BMI 30-39.9): Code(s): E66.9 - Obesity, unspecified Category: Medical Plan: Reinforced diet/exercise as tolerated/lose weight (5) Colon cancer screening: Comment: Colon screen Code(s): Z12.11 - Encounter for screening for malignant neoplasm of colon Category: Medical Plan: His last colonoscopy was done on 07/26/2021 - patient recalls that he was recommended by Dr. Reese at the time that he should get a repeat colonoscopy done in 3 years due to fair bowel prep in the right colon Will now refer him back to Dr. Reese for consideration for repeat colonoscopy Plan Follow up in 4 months Orders: Orders Comprehensive Glady. Panel Fast 4 Months E78.00 - Pure hypercholesterolemia, unspecified Lipid Panel 4 Months E78.00 - Pure hypercholesterolemia, unspecified Referrals Gastroenterology Referral Z12.11 - Encounter for screening for malignant neoplasm of colon
[2024-06-03 16:00] VITALS: BP 124/82; PULSE 74; O2SAT 95; BMI 30.4
--- OUTSIDE RECORDS SUMMARY | 2024-06-03 16:00 | XMS_ITS | Clinical Summary ---
Author Organization [facility] Address [address] [place] [address] Care Team Providers Care Window Assembler Name Role Phone Patrick Brown MD Primary Care Provider [phone] Allergies No known active allergies Medications Medication Sig Dispensed Refills Start Date End Date Status [facility] Purelax 17 GM/SCOOP powder TAKE DIRECTED BY MOUTH THE DAY BEFORE YOUR PROCEDURE 0 03/28/2021 Active [facility] Gentle Laxative 5 MG EC tablet PLEASE SEE ATTACHED FOR DETAILED DIRECTIONS 0 03/28/2021 Active atorvastatin (LIPITOR) tablet 10 mg Take 10 mg by mouth every night at bedtime. 0 06/02/2021 Active oxyCODONE-acetamino phen (Percocet) 5-325 MG per tablet Take 1-2 tablets by mouth every 4 (four) hours as needed for pain for up to 6 doses. 39 tablet 0 07/09/2021 Active Additional Information Patient not taking.Reason: Other, Reported on 09/10/2021 Active Problems Problem Noted Date Diagnosed Date Rupture of right distal biceps tendon 06/21/2021 Family History Medical History Relation Name Comments Diabetes Mother Relation Name Status Comments Mother Social History Tobacco Use Types Packs/Day Years Used Date Smoking Tobacco: Never Smokeless Tobacco: Never Alcohol Use Standard Drinks/Week Comments Yes 0 (1 standard drink = 0.6 oz pur e alcohol) socially Sex and Gender Information Value Date Recorded Sex Assigned at Male 05/30/2021 5:53 AM EDT Gender Identity Male 05/30/2021 5:53 AM EDT Sexual Orientation Not on file Job Start Date Occupation Industry Not on file Not on file Not on file Last Filed Vital Signs Vital Sign Reading Time Taken Comments Blood Pressure 133/89 05/30/2021 6:36 AM EDT Pulse 62 05/30/2021 6:36 AM EDT Temperature 37.1 ??C (98.8 ??F) 05/30/2021 6:01 AM ED T Respiratory Rate 14 05/30/2021 6:36 AM EDT Oxygen Saturation 96% 05/30/2021 6:36 AM EDT Inhaled Oxygen Concentration - - Weight 88.9 kg (196 lb) 12/04/2021 3:27 PM EDT Height 177.8 cm (5' 10 ) 12/04/2021 3:27 PM EDT Body Mass Index 28.12 12/04/2021 3:27 PM EDT Plan of Treatment Health Maintenance Due Date Last Done Comments Hepatitis B Vaccines (1 of 3 - 3-dose series) 1975 Hepatitis C Screening 1975 COVID-19 Vaccine (#1) 1975 Depression Screening 1987 BMI Counseling 04/24/1993 Preventative Health Evaluation 04/24/1993 DTap / Tdap / Td (1 - Tdap) 04/24/1994 Colon Cancer Screening (Colonoscopy) 04/24/2020 Influenza Vaccine (#1) 2023 11/22/2020 Pneumococcal Vaccine Aged Out No long er eligible based on patient's age to complete this topic RSV Ped < 20 months Aged Out No longe r eligible based on patient's age to complete this topic Care Teams Window Assembler Relationship Specialty Start Date End Date Patrick Brown MD [address] [place] [address] [place] [address] PCP - General Internal Medicine 06/17/21
--- OUTSIDE RECORDS SUMMARY | 2024-06-03 16:00 | XMS_ITS | Data Portability ---
Author Organization [place] [facility] [place] Address [address] [place] [address] Care Team Providers Care Winchman/Crane Operator Name Role Phone ISSAC LAURA Die Set Up Worker Assessment Encounter Date Assessment Date Assessment LastModified [...] The patient has reached maximal medical improvement. [employer] Guides to the Evaluation of [...] of distal tendon of right biceps brachii [id number] 100 Active 2022 Huey Moe MD [address], [facility] [place], [address], [place] [facility] [place], 17:39:36 Problem Notes None recorded. Medical Equipment [...] SNOMED-CT Code Diagnosis ICD10 Code Diagnosis Note [id number] MD VIDAL Taylor[address] [address] 07/29/2022 09:11:36 07/29/2022 09:22:33 Traumatic rupture of distal tendon of right biceps brachii [id number] M66.821 Health Concerns Section Related Observation LastModified by Organization Detai ls LastModified Time None Recorded Concern Status LastModified by Organization Details LastModified Time None Recorded Advance Directives Directive None Recorded Payers Encounter Date Sequence Insurance Name Policy Number Policy [place] Covered Member ID [place] Member ID Guarantor Name 07/29/2022 INDEMNITY INSURANCE [employer] [facility] Kisha Horton
--- OUTSIDE RECORDS SUMMARY | 2024-06-03 16:00 | XMS_ITS | Clinical Summary ---
Author Organization [facility] [facility] it[facility] Address [address] [place] [address] Care Team Providers Care Roll Cleaner Name Role Phone Patrick Brown MD Primary Care Provider Surgical History Surgery Date Site/Laterality Comments OTHER SURGICAL HISTORY 07/09/2021 Right PROCEDURE:right distal biceps tendon repair;COMMENT:Dr. Huey Moe, [facility] [place] Medical History Medical History Date Comments High [...] age to complete this topic Care Teams Roll Cleaner Relationship Specialty Start Date End Date Patrick Brown MD [address] [place] [address] Dr [address] KARIS Pickard PCP - General Internal Medicine 06/17/21
== END 2024-06-03 16:35 | disposition home or self-care (01) ==
LOC: HO.HMCH 15:59
PROVIDERS: PCP Internal Medicine; Visit Provider Internal Medicine
DX: E78.00 Pure hypercholesterolemia, unspecified (principal); K21.9 Gastro-esophageal reflux disease without esophagitis; E66.9 Obesity, unspecified; Z68.30 Body mass index [BMI] 30.0-30.9, adult; E55.9 Vitamin D deficiency, unspecified; Z12.11 Encounter for screening for malignant neoplasm of colon

== ENCOUNTER → 2024-06-03 15:58 | Outpatient (BNVA) | payer BC, SELFPAY | PROVIDERS: PCP Internal Medicine; Visit Provider Internal Medicine | DX: E78.00 Pure hypercholesterolemia, unspecified (principal); K21.9 Gastro-esophageal reflux disease without esophagitis; E55.9 Vitamin D deficiency, unspecified; E66.9 Obesity, unspecified; Z68.30 Body mass index [BMI] 30.0-30.9, adult; Z79.899 Other long term (current) drug therapy | CPT/HCPCS: 96127 ==

== ENCOUNTER 2024-06-17 15:13 | Outpatient (AMB) | payer BC, SELFPAY ==
--- OUTSIDE RECORDS SUMMARY | 2024-06-17 15:16 | XMS_ITS | Data Portability ---
Author Organization [place] [facility] Nick Paul AONE [place] Address [address] [place] [address] Care Team Providers Care Ophthalmology Surgical Technician Name Role Phone ISSAC LAURA Completions Engineer [phone] Assessment Encounter Date Assessment Date Assessment LastModified [...] The patient has reached maximal medical improvement. [employer] Guides to the Evaluation of [...] of distal tendon of right biceps brachii [id number] 100 Active 2022 Heuy Moe MD [address], [place], [address], [place] [facility] [place], 17:39:36 Problem Notes None recorded. Medical Equipment [...] SNOMED-CT Code Diagnosis ICD10 Code Diagnosis Note [id number] MD VIDAL [address] [address] 07/29/2022 09:11:36 07/29/2022 09:22:33 Traumatic rupture of distal tendon of right biceps brachii [id number] M66.821 Health Concerns Section Related Observation LastModified by Organization Detai ls LastModified Time None Recorded Concern Status LastModified by Organization Details LastModified Time None Recorded Advance Directives Directive None Recorded Payers Encounter Date Sequence Insurance Name Policy Number Policy [place] Covered Member ID [place] Member ID Guarantor Name 07/29/2022 INDEMNITY INSURANCE [facility] Kisha Horton
--- OUTSIDE RECORDS SUMMARY | 2024-06-17 15:16 | XMS_ITS | Clinical Summary ---
Author Organization [employer] [facility] ity Address [address] [place] [address] Care Team Providers Care Coordinating Producer Name Role Phone Patrick Brown MD Primary Care Provider [phone] Surgical History Surgery Date Site/Laterality Comments OTHER SURGICAL HISTORY 07/09/2021 Right PROCEDURE:right distal biceps tendon repair;COMMENT:Dr. Huey Moe, [facility] [place] Medical History Medical History Date Comments High [...] age to complete this topic Care Teams Coordinating Producer Relationship Specialty Start Date End Date Patrick Brown MD [address] [place] [address] Dr [address] KARIS Pickard PCP - General Internal Medicine 06/17/21
--- OUTSIDE RECORDS SUMMARY | 2024-06-17 15:16 | XMS_ITS | Clinical Summary ---
Author Organization [facility] Address [address] [place] [address] Care Team Providers Care Doorshaker Name Role Phone Patrick Brown MD Primary Care Provider [phone] Allergies No known active allergies Medications Medication [...] age to complete this topic Care Teams Doorshaker Relationship Specialty Start Date End Date Patrick Brown MD [address] [place] [address] [place] [address] PCP - General Internal Medicine 06/17/21
--- NOTE | 2024-06-17 15:21 | MHC.OFFVIS ---
Vital Signs 06/17/24 15:22 Height 5 ft 10 in Weight 215 lb BMI 30.8 BP 118/67 Blood Pressure Location Lt brachial Position Sitting Pulse 67 Pulse Oximetry (%) 94 Oxygen Delivery Method Room Air Intake Visit Reasons: pre colonoscopy / [facility] 08/07/2021 Intake Note: Patient complex follow up / [facility] 08/07/2021 and last EGD/Colonoscopy was 07/28/2021 with 3 yrs recall. Patient denies any GI issues for today. Enterprise Integration Architect Required: No Accompanied by: Self / Same As Patient Allergies No Known Allergies Allergy (Verified 06/17/24 15:21) Medication List - Last Reconciled 06/17/24 by Marylu Edge CNP atorvastatin 10 mg PO BEDTIME 90 days bisacodyl 5 mg PO ONCE 1 day cholecalciferol (vitamin D3) 25 mcg PO DAILY omeprazole magnesium 20 mg PO DAILY 90 days polyethylene glycol 3350 (Miralax) 238 grams PO ONCE HPI HPI pre colonoscopy / [facility] 08/07/2021: Details: Patient is a 49-year-old male with PMH of vitamin-D deficiency, hyperlipidemia and GERD. Last visit with KEVIN Rene 03/28/2021 for pre colonoscopy screening. Pt is here today for pre colonoscopy screening, 3 year recall. He reports daily BM, type 4 on [place] stool. He denies constipation, loose stools or hemorrhoids. He reports lifelong history of ab bloating, describes as feeling full. However, states symptoms are unchanged. He reports symptoms are triggered by consumption of red sauce and dairy. He reports pyrosis is well managed with [id number] daily omeprazole. Patient denies: fever/chills, n/v, appetite changes, regurgitation, dysphasia, unintentional wt loss, ab pain or melena/hematochezia. Social hx: 6 pack of beer, 2-3x/month denies recreational drug use non-smoker -family hx as below -denies personal hx of CA -denies significant cardiopulmonary history -tolerated anesthesia in the past without difficulty. [facility] Medical History GERD without esophagitis Overweight (BMI 25.0-29.9) Vitamin D deficiency Pure hypercholesterolemia Surgical History History of elbow surgery History of esophagogastroduodenoscopy (EGD) Hx of colonoscopy History of surgery Family History Father No problems noted. Mother No problems noted. 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 Cognitive needs: No Hearing needs: No Vision needs: No Review of Systems Const Reports as per HPI ENT Reports as per HPI Card Reports as per HPI Resp Reports as per HPI GI Reports as per HPI Reports as per HPI Physical Exam Vital Signs: Oxygen Delivery Method Room Air 06/17/24 15:22 BMI result Body Mass Index 30.8 Const General: healthy appearing, no acute distress and well developed Nutritional Appearance: well nourished Orientation/consciousness: patient oriented x3 HEENT Head: Yes normal to inspection, Yes normocephalic and Yes atraumatic Face and sinus: Yes normal facial exam Eyes General: appearance normal, both eyes and all related structures Neck Neck: Yes normal visual inspection Resp Effort & Inspection: normal respiratory effort, able to speak in complete sentences, no tracheal deviation and symmetric chest movement Auscultation: clear to auscultation bilaterally Cardio Jugular venous distension: no JVD Rate: regular rate Rhythm: regular rhythm Heart sounds: S1 normal heart sound present, S2 normal heart sound present, no gallops and no murmurs GI Inspection: Yes normal to inspection and No distended Palpation (GI): Soft to palpation, not firm, nontender and No hepatosplenomegaly present Auscultation: normal bowel sounds Neuro General: patient oriented x3 Gait exam (Neuro): Normal gait present Psych Appearance: grossly normal Mental Status: mental status grossly normal Speech and movement: Normal speech and movement present Affect: normal affect Attitude: cooperative Thought process: Normal thought process present Thought content: Normal thought content present Insight: Good insight present (Psych) Judgement: Good judgement present (Psych) Results Reviewed Results Reviewed: Date of Service: 07/26/21 Pre-op diagnosis: Colon cancer screening, GERD, abdominal bloating Post-op diagnosis:?other (GERD, gastritis, gastric polyp, colon polyps, diverticulosis, hemorrhoids) Procedure: FLEXIBLE TRANSORAL UPPER GASTROINTESTINAL ENDOSCOPY WITH BIOPSIES AND COLONOSCOPY TILL CECUM WITH BIOPSIES UPPER ENDOSCOPY Procedure:?The patient was placed in the left lateral decubitis position and pre-procedure medications were administered and a bite block was placed. The endoscope was inserted into the mouth and advanced under direct vision to the third part of duodenum. A careful inspection was made as the upper endoscope was withdrawn including a retroflexed examination of the proximal stomach; Findings and interventions are described below. Findings: Larynx:? Normal Esophagus:?GE junction at 40 cms. No esophagitis or Kurtz's. Stomach:?Mild gastric erythema. Biopsies were obtained. A 4-5 mm benign appearing polyp in the fundus (biopsied) and Grade 2 flap valve on retroflexed examination of the cardia. Duodenum:?Normal bulb and descending duodenum.? Biopsies were obtained from 3rd part of the duodenum to check for celiac sprue. Intervention:?Biopsies as noted above COLONOSCOPY PROCEDURE NOTE Procedure:?The patient was placed in the left lateral decubitis position and pre-procedure medications were administered. After a digital rectal examination of the ano-rectum, the video colonoscope was inserted into the rectum and advanced through the colon to the cecum. The colonoscope was slowly withdrawn in a retrograde panoramic fashion and the colon mucosa was carefully examined including a retroflexed view of the rectum. Findings and interventions are described below. Procedure Difficulty:?: Without difficulty Findings: Terminal Ileum: Not evaluated Cecum:? Partially evaluated due to sub optimal prep in the right colon Ascending Colon:??Normal Transverse Colon:??Normal Descending Colon:? Normal Sigmoid Colon:??Moderate diverticulosis Rectum:??Two 5-6 mm diminutive appearing polyps removed with a cold biopsy Ano-rectum:??Moderate internal hemorrhoids Colon preparation:? Fair in the right colon and small area in the sigmoid colon due to undigested food - despite copious irrigation Good in the transverse and left colon (approx 60 to 65% of the colon mucosa was visualized) Impression and Post Procedure Diagnosis: Endoscopy Findings: STOMACH:? Gastritis and gastric polyp DUODENUM: Normal - Biopsies were obtained from 3rd part of the duodenum to check for celiac sprue. Colonoscopy Findings: Two small diminutive appearing polyps removed Moderate diverticulosis seen in the sigmoid colon Moderate hemorrhoids on retroflexed exam. Plan: Await pathology results Patient has an appointment on 08/07/21 in the GI Clinic with KEVIN Gunderson. Repeat Colonoscopy interval based on path results - in 3 years due to fair prep in the right colon. Pathology Collected: 07/26/21 Diagnosis A. Small bowel, biopsy: Duodenal mucosa within normal limits; negative for celiac disease. B. Stomach, antrum, biopsy: Antral-type and oxyntic mucosa within normal limits; no Helicobacter organisms seen. C. Stomach, polyp: Hyperplastic mucosal polyp with background mild chronic inactive inflammation; no Helicobacter organisms seen. D. Rectum, polypectomy: Hyperplastic mucosal polyp. Clinical History Pre-Op Dx: Screening, reflux Post-Op Dx: Gastritis, gastric polyp, rectal polyp, diverticulosis, hemorrhoids Assessment & Plan Assessment & Plan (1) GERD without esophagitis: Comment: EGD 07/26/21:Hyperplastic polyp, stomach; negative for celiac disease/Helicobacter organisms Code(s): K21.9 - Gastro-esophageal reflux disease without esophagitis Category: Medical Plan: Well-controlled with daily omeprazole, instructed to continue as prescribed. Education on GERD prevention: -Advised against heavy meals; encouraged small, frequent meals instead of large ones. - Instructed to remain upright for 2?3 hours after eating. - Advised to avoid late-night meals, spicy foods, caffeine, alcohol, known dietary triggers, and tight-fitting clothing. - Emphasis placed on gradual implementation of lifestyle changes to improve adherence and symptom control. (2) Colon cancer screening: Comment: 07/26/21 colonoscopy: Hyperplastic mucosal polyp-rectum, Moderate diverticulosis seen in the sigmoid colon. Moderate hemorrhoids on retroflexed exam. Code(s): Z12.11 - Encounter for screening for malignant neoplasm of colon Category: Medical Plan: Last colonoscopy July 2021 with hyperplastic polyps and reports a fair prep. Extensive review of prep and procedure expectations. He understands to start clear liquids day prior to prep ( two days following CLD). Prep Rx'd to preferred pharmacy. Plan Follow-up after colonoscopy or sooner as needed Time: I spent a total of 30 minutes on the date of encounter which includes: Preparing to see the patient (reviewed previous documentation, test results and medical history) Performing a medically appropriate exam and/or evaluation Ordering medications, tests, and procedures Documenting clinical information in the health record Medications: New polyethylene glycol 3350 (Miralax) per colonoscopy prep instructions 238 grams PO ONCE 238 grams 0RF bisacodyl per colonoscopy instructions 5 mg PO ONCE 1 day 4 tabs 0RF Coding Level of Care Code Established Pt Est Pt Level 4 (48654) Patient Type Established Diagnoses GERD without esophagitis K21.9 Colon cancer screening Z12.11
[2024-06-17 15:22] VITALS: BP 118/67; PULSE 67; O2SAT 94; BMI 30.8
== END 2024-06-17 15:51 | disposition home or self-care (01) ==
LOC: HO.HGI 15:14
PROVIDERS: PCP Internal Medicine; Visit Provider Nurse Practitioner Family
DX: Z01.818 Encounter for other preprocedural examination (principal); Z12.11 Encounter for screening for malignant neoplasm of colon; Z86.0102 Personal history of hyperplastic colon polyps; K21.9 Gastro-esophageal reflux disease without esophagitis
CPT/HCPCS: S0285

== ENCOUNTER 2024-12-23 06:46 | Day surgery (SDC) | payer BC, SELFPAY ==
--- NOTE | 2024-12-21 12:21 | HO.ANESPROP2 ---
Documented by User: Tammy Peña NP 12/21/24 12:21 HPI - Anesthesia Eval Consult details Narrative: 49yo M for Colonoscopy PMF Active Problems Active Problems: All Active Problems Obesity (BMI 30-39.9) (Acute) Diverticular disease (Acute) Hyperplastic rectal polyp (Acute) Hyperplastic polyp of stomach (Acute) Annual physical exam (Acute) Colon cancer screening (Acute) Rupture of biceps tendon (Acute) Preoperative examination (Acute) GERD without esophagitis (Acute) Overweight (BMI 25.0-29.9) (Acute) Vitamin D deficiency (Acute) Pure hypercholesterolemia (Acute) Past Medical History Medical History GERD without esophagitis Overweight (BMI 25.0-29.9) Vitamin D deficiency Pure hypercholesterolemia Family History Family History Father No problems noted. Mother No problems noted. Family history of problems with anesthesia: No Surgical History Surgical History History of elbow surgery History of esophagogastroduodenoscopy (EGD) Hx of colonoscopy History of surgery History of Problems with Anesthesia: No Social History Social History Household Members Other:: Housing: House Alcohol intake: current Alcohol intake frequency: a few times a week Patient Tobacco Use Status: Never used Tobacco Second Hand Smoke Exposure: No Use of substances other than those prescribed or required for medical reasons: No Advance Directives: No Advance Directives Information Provided: Yes service: No Current occupational status: employed 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 Cognitive needs: No Hearing needs: No Vision needs: No Meds Allergies Allergy/AdvReac Type Severity Reaction Status Date / Time No Known Allergies Allergy Verified 06/17/24 15:21 Home Medications ?Medication ?Instructions ?Recorded ?Confirmed ?Last Taken ?Type cholecalciferol (vitamin D3) 25 25 mcg PO DAILY 03/06/20 12/21/24 Unknown History mcg (1,000 unit) capsule Assessment and Plan Assessment Anesthesia Assessment: Chart Reviewed Final Anesthetic Review Family History of Problems with Anesthesia: No History of Problems with Anesthesia: No Documented by User: Clara Medrano MD 12/23/24 08:19 PMFSH Past Medical History Medical History GERD without esophagitis Overweight (BMI 25.0-29.9) Vitamin D deficiency Pure hypercholesterolemia Family History Family History Father No problems noted. Mother No problems noted. 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 Cognitive needs: No Hearing needs: No Vision needs: No Meds Allergies Allergy/AdvReac Type Severity Reaction Status Date / Time No Known Allergies Allergy Verified 06/17/24 15:21 Home Medications ?Medication ?Instructions ?Recorded ?Confirmed ?Last Taken ?Type cholecalciferol (vitamin D3) 25 25 mcg PO DAILY 03/06/20 12/21/24 Unknown History mcg (1,000 unit) capsule Exam Airway Mallampati Class: II TM Dist: >3cm Neck ROM: Full Heart: rrr Lungs: cta Assessment and Plan Assessment Anesthesia Assessment: Anesthesia Plan Discussed Final Anesthetic Review NPO: Yes ASA Class: II Final Preanesthetic Review: No Changes in Pt Med Stat, Meds/Allgs Chart Reviewed, Consent Obtained/Reviewed and Anes Risks/Benef Reviewed Patient Risk: Low Procedure Risk: Low Anesthetic Plan Anesthetic Plan: MAC: and Agree w/ Assess. and Plan Disposition: Standard PACU
[2024-12-21 13:40] VITALS: BMI 30.8
[2024-12-23 07:05] VITALS: BMI 29.9
[2024-12-23 07:15] VITALS: BP 124/77; PULSE 55; RESP 16; TEMP 36.4; O2SAT 96
[2024-12-23] MEDS: Lactated Ringers 1,000 ML 100 ML IVCONT (07:15)
--- NOTE | 2024-12-23 07:24 | MHC.SHP ---
Pre-Procedural Eval Section A - 24 Hr Update-Section A only Date of Service: 12/23/24 The patient is an INPATIENT: No The patient has been examined within 24 hours of the surgical procedure. The History & Physical has been completed within 30 days and I have reviewed it.: No Section B - Complete if H&P > 30 days Chief Complaint: Surveillance for colon polyps Relevant Family History (Specify if Yes): No Relevant Social History: None Present Medications: see Short Stay Collaborative assessment Medical History: Significant History (GERD without esophagitis Overweight (BMI 25.0-29.9) Vitamin D deficiency Pure hypercholesterolemia) History of Previous Operations: Relevant previous surgery/procedure and date(s) (History of elbow surgery History of esophagogastroduodenoscopy (EGD) Hx of colonoscopy History of surgery) Allergies: Allergies Allergy/AdvReac Type Severity Reaction Status Date / Time No Known Allergies Allergy Verified 06/17/24 15:21 Review of Systems Sugical H&P ROS: Negative: Constitution, Cardiovascular, Respiratory and Gastrointestinal Exam Surgical H&P Exam: Normal: Heart, Normal: Lungs, Normal: Extremities and Normal: Abdomen Plan Diagnosis/Plan: Change (Proceed with colonoscopy) I have reviewed the history and physical and performed a pertinent physical examination on my patient. No changes have occurred unless specified. Time Spent With Patient Time: Total time managing care of this patient today ____ minutes.
--- NOTE | 2024-12-23 09:18 | P.OPN-COLO_ITS ---
Colonoscopy Operative Note Operative Note Date of Service: 12/23/24 Narrative: COLONOSCOPY TILL CECUM WITH BIOPSIES Pre-op diagnosis: Surveillance of colon polyps. Post-op diagnosis:? Colon polyps, Diverticulosis, hemorrhoids Endoscopist:? Katie Reese MD Anesthesia:?MAC Consent: Indications for the procedure and potential complications of bleeding, perforation, reaction to medications and missed diagnosis were discussed with the patient and informed consent was obtained. Instrument: Olympus CF H 190 L variable stiffness adult colonoscope Monitoring: Vital signs and clinical assessment, intermittent blood pressure monitoring, continuous EKG monitoring, Pulse oximetry and Carbon Dioxide monitoring were done throughout the procedure. Please see anesthesia flowsheet. Colon withdrawl time was 14 minutes. Procedure: The patient was placed in the left lateral decubitis position and pre-procedure medications were administered. After a digital rectal examination of the ano-rectum, the video colonoscope was inserted into the rectum and advanced through the colon to the cecum. The colonoscope was slowly withdrawn in a retrograde panoramic fashion and the colon mucosa was carefully examined including a retroflexed view of the rectum. Findings and interventions are described below. Procedure Difficulty: without difficulty Findings: Terminal Ileum: Not evaluated Cecum: Normal Ascending Colon: Normal Transverse Colon: A 2-3 mm diminutive appearing polyp in the distal transverse colon - removed with a cold biopsy. Descending Colon: Normal Sigmoid Colon: Two 3-4 mm diminutive appearing polyps - removed with a cold biopsy. Moderate diverticulosis Rectum: Normal Ano-rectum: Moderate internal hemorrhoids Colon preparation: Excellent after some irrigation. [place] Bowel Preparation Scale Right colon; 3 Transverse colon: 3 Left colon; 3 (0 = Unprepared colon segment with mucosa not seen due to solid stool that cannot be cleared. 1 = Portion of mucosa of the colon segment seen, but other areas of the colon segment not well seen due to staining, residual stool and/or opaque liquid. 2 = Minor amount of residual staining, small fragments of stool and/or opaque liquid, but mucosa of colon segment seen well. 3 = Entire mucosa of colon segment seen well with no residual staining, small fragments of stool or opaque liquid) Impression and Post Procedure Diagnosis: Colonoscopy Findings: Three small polyps were removed Moderate diverticulosis seen in the sigmoid colon Moderate hemorrhoids on retroflexed exam. Plan: I will send a letter with biopsy results. Repeat Colonoscopy in 3-5 years if polyps are adenomatous and 10 year if polyps are hyperplastic. Above findings were reviewed with the patient and relevant handouts were given and the discharge area.
[2024-12-23 09:22] VITALS: BP 114/55; PULSE 65; RESP 16; TEMP 36.4; O2SAT 96
[2024-12-23 09:32] VITALS: BP 114/73; PULSE 56; RESP 16; TEMP 36.4; O2SAT 93
== END 2024-12-23 10:02 | disposition home or self-care (01) ==
PROVIDERS: PCP Internal Medicine; Visit Provider Internal Medicine Gastroenterology
PROC: 0DJD8ZZ Inspection of Lower Intestinal Tract, Via Natural or Artificial Opening Endoscopic (ICD-10-PCS; CPT 45378; principal; 2024-12-23 08:30)
DX: Z12.11 Encounter for screening for malignant neoplasm of colon (principal); Z86.0101 Personal history of adenomatous and serrated colon polyps; K64.8 Other hemorrhoids; K57.90 Diverticulosis of intestine, part unspecified, without perforation or abscess without bleeding; K63.5 Polyp of colon
CPT/HCPCS: 45380; 88305; J2003; J2704; J3010

== ENCOUNTER → 2024-12-23 06:46 | Outpatient (BNV) | payer BC, SELFPAY | PROVIDERS: PCP Internal Medicine; Visit Provider Internal Medicine Gastroenterology | DX: Z12.11 Encounter for screening for malignant neoplasm of colon (principal); K63.5 Polyp of colon; K57.30 Diverticulosis of large intestine without perforation or abscess without bleeding; K64.8 Other hemorrhoids | CPT/HCPCS: 45380 ==